=== PATIENT | female | born 1995 | race Caucasian/White ===

== ENCOUNTER 2016-12-19 10:47 | Emergency (ER) | payer OTHER ==
--- NOTE | 2016-12-19 11:22 | ED ---
General Adult HPI - General Chief complaint: Upper Respiratory Infection Stated complaint: congestion Time Seen by Provider: 12/19/16 11:04 Source: patient, RN notes reviewed, old records reviewed Mode of arrival: ambulatory Limitations: no limitations - History of Present Illness Initial comments: This is a 21-year-old female here for evaluation. The patient has history of asthma, history of smoking, patient coming with shortness of breath cough congestion runny nose. Symptoms for 3 days, patient states exposure to her roommate who is also sick with similar symptoms. Patient has no noted fevers, no chest pain. Worsening symptoms with ex exercise and at night. - Related Data Home Medications Medication Instructions Recorded Confirmed Levonorgestrel-Ethin Estradiol 1 tab PO DAILY 12/19/16 12/19/16 [Falmina-28 Tablet] Allergies Allergy/AdvReac Type Severity Reaction Status Date / Time No Known Allergies Allergy Verified 12/19/16 11:15 Review of Systems ROS Statement: Those systems with pertinent positive or pertinent negative responses have been documented in the HPI. ROS Other: All systems not noted in ROS Statement are negative. Past Medical History Past Medical History: Asthma History of Any Multi-Drug Resistant Organisms: None Reported Past Surgical History: No Surgical Hx Reported Past Psychological History: ADD/ADHD, Anxiety Smoking Status: Current every day smoker Past Alcohol Use History: None Reported Past Drug Use History: Marijuana General Exam Limitations: no limitations General appearance: alert, in no apparent distress Head exam: Present: atraumatic, normocephalic, normal inspection Eye exam: Present: normal appearance, PERRL, EOMI. Absent: scleral icterus, conjunctival injection, periorbital swelling ENT exam: Present: normal exam, mucous membranes moist Neck exam: Present: normal inspection. Absent: tenderness, meningismus, lymphadenopathy Respiratory exam: Present: normal lung sounds bilaterally, wheezes, decreased breath sounds, prolonged expiratory. Absent: respiratory distress, rales, rhonchi, stridor Cardiovascular Exam: Present: regular rate, normal rhythm, normal heart sounds. Absent: systolic murmur, diastolic murmur, rubs, gallop, clicks GI/Abdominal exam: Present: soft, normal bowel sounds. Absent: distended, tenderness, guarding, rebound, rigid Extremities exam: Present: normal inspection, full ROM, normal capillary refill. Absent: tenderness, pedal edema, joint swelling, calf tenderness Back exam: Present: normal inspection Neurological exam: Present: alert, oriented X3, CN II-XII intact Psychiatric exam: Present: normal affect, normal mood Skin exam: Present: warm, dry, intact, normal color. Absent: rash Course Vital Signs 12/19/16 12/19/16 10:55 11:30 Temperature 97.5 F L Pulse Rate 96 Respiratory 18 18 Rate Blood Pressure 132/88 O2 Sat by Pulse 98 Oximetry - Reevaluation(s) Reevaluation #1: 12/19/16 11:37 Patient much improved after breathing treatment, no respiratory distress Medical Decision Making - Medical Decision Making 21. ER for evaluation of cough congestion runny nose shortness of breath. Patient has asthma with continued smoking, currently wheezing with asthmatic bronchitis, patient which she with appropriate medication, DISCHARGED home, x- ray negative - Radiology Data Radiology results: report reviewed (Chest x-ray is negative for pneumonia), image reviewed Disposition Clinical Impression: Asthmatic bronchitis, Upper respiratory infection Disposition: HOME SELF-CARE Condition: Good Instructions: Asthma (ED), Upper Respiratory Infection (ED) Referrals: Ronald Booth MD [Primary Care Provider] - 1-2 days
[2016-12-19] MEDS ORDERED: IPRATROPIUM-ALBUTEROL 3 ML NEB INHALATION STA (11:23)
[2016-12-19] MEDS ORDERED: predniSONE 20 MG TAB PO STA (11:23)
[2016-12-19] MEDS ORDERED: AZITHROMYCIN 500 MG TAB PO STA (11:23)
--- NOTE | 2016-12-19 12:24 | XR ---
EXAMINATION TYPE: XR chest 2V DATE OF EXAM: 12/19/2016 12:20 PM COMPARISON: 02/22/2012 HISTORY: Chest pain TECHNIQUE: Frontal and lateral views of the chest are obtained. FINDINGS: There is no focal air space opacity. No evidence for pnuemothorax.No pleural effusion. The cardiac silhouette size is within normal limits. The osseous structures are grossly intact. IMPRESSION: 1. No acute cardiopulmonary process.
[2016-12-19 12:37] VITALS: BP 132/77; PULSE 71; RESP 16; TEMP 98.2
== END 2016-12-19 12:37 | disposition home or self-care (01) ==
LOC: EC 10:47
DX: J45.909 Unspecified asthma, uncomplicated (principal); J06.9 Acute upper respiratory infection, unspecified; F17.200 Nicotine dependence, unspecified, uncomplicated; Z79.3 Long term (current) use of hormonal contraceptives
CPT/HCPCS: 94640; 71020; 99284; J7512

== ENCOUNTER 2017-06-01 18:49 | Emergency (ER) | payer OTHER ==
[2017-06-01 19:20] VITALS: BP 127/78; PULSE 78; RESP 16; TEMP 99.3
--- NOTE | 2017-06-01 19:40 | ED ---
Back Pain HPI - General Chief Complaint: Back Pain/Injury Stated Complaint: tailbone pain Time Seen by Provider: 06/01/17 19:21 Source: patient, RN notes reviewed Mode of arrival: ambulatory Limitations: no limitations - History of Present Illness Initial Comments: This is a 21-year-old female who presents to the emergency department with chief complaint of tail bone pain. Patient states that she has been experiencing this pain for about one month. She denies any specific injury or trauma. Patient describes the pain as a pressure and ache. She reports the pain is made worse with sitting and movement. Mother is at bedside and states that patient walks with a "waddle." Patient denies saddle paresthesias and loss of bladder or bowel function. At its worst, patient rates the pain as 10/ 10. Currently the pain is rated as 5/10. Denies fever, chills, chest pain, shortness of breath, abdominal pain, nausea or vomiting, constipation or diarrhea, dysuria or hematuria, numbness or tingling, headache or vision changes. - Related Data Home Medications Medication Instructions Recorded Confirmed No Known Home Medications [No 06/01/17 06/01/17 Known Home Medications] Allergies Allergy/AdvReac Type Severity Reaction Status Date / Time No Known Allergies Allergy Verified 06/01/17 19:20 Review of Systems ROS Statement: Those systems with pertinent positive or pertinent negative responses have been documented in the HPI. ROS Other: All systems not noted in ROS Statement are negative. Past Medical History Past Medical History: Asthma History of Any Multi-Drug Resistant Organisms: None Reported Past Surgical History: No Surgical Hx Reported Past Psychological History: ADD/ADHD, Anxiety Smoking Status: Current some day smoker Past Alcohol Use History: None Reported Past Drug Use History: Marijuana General Exam - General Exam Comments Initial Comments: General: Awake and alert, well-developed; in no apparent distress. HEENT: Head atraumatic, normocephalic. Pupils are equal, round and reactive to light. Extraocular movements intact. Neck: Supple. Normal ROM. Cardiovascular: Regular rate and rhythm. No murmurs, rubs or gallops. Chest symmetrical. Respiratory: Lungs clear to auscultation bilaterally. No wheezes, rales or rhonchi. Normal respiratory effort with no use of accessory muscles. Back: Skin overlying the coccyx and sacrum appears normal. There is no erythema , swelling or redness. No fluctuance noted on palpation. Tenderness is elicited on palpation of tailbone. Skin: [place], warm and dry without rashes or lesions. Neurological: Alert and oriented x3. CN II-XII grossly intact. Speech is fluent and answers are appropriate. No focal neuro deficits. Psychiatric: Normal mood and affect. No overt signs of depression or anxiety noted. Limitations: no limitations Course Vital Signs 06/01/17 19:18 Temperature 99.3 F Pulse Rate 78 Respiratory 16 Rate Blood Pressure 127/78 O2 Sat by Pulse 98 Oximetry Medical Decision Making - Medical Decision Making This case was discussed with attending physician, Dr. Estrada. X-ray of the sacrum and coccyx revealed no abnormalities. Patient will be discharged home with recommendation to follow-up with primary care provider if further imaging is desired. Patient is in agreement to the plan and voiced understanding. All questions were answered. Disposition Clinical Impression: Coccyx pain Disposition: HOME SELF-CARE Condition: Good Instructions: Back Pain (ED) Additional Instructions: Please follow up with primary care provider within 1-2 days. Return to emergency department if symptoms should worsen or any concerns arise. Referrals: Ronald Booth MD [Primary Care Provider] - 1-2 days Time of Disposition: 20:05
--- NOTE | 2017-06-01 19:53 | XR ---
EXAMINATION TYPE: XR sacrum coccyx DATE OF EXAM: 06/01/2017 COMPARISON: NONE HISTORY: Pain TECHNIQUE: 3 views FINDINGS: Segments have normal alignment. Sacroiliac joints appear normal. I see no fracture. IMPRESSION: Normal sacrum and coccyx exam.
== END 2017-06-01 20:10 | disposition home or self-care (01) ==
LOC: EC 18:49
DX: M53.3 Sacrococcygeal disorders, not elsewhere classified (principal); F17.200 Nicotine dependence, unspecified, uncomplicated
CPT/HCPCS: 72220; 99283

== ENCOUNTER 2017-09-08 20:56 | Emergency (ER) | payer OTHER ==
[2017-09-08 21:07] VITALS: RESP 20; TEMP 97.7
[2017-09-08] MEDS ORDERED: IPRATROPIUM-ALBUTEROL 3 ML NEB INHALATION STA (21:18)
[2017-09-08] MEDS ORDERED: predniSONE 50 MG TAB PO STA (21:18)
--- NOTE | 2017-09-08 21:24 | ED ---
General Adult HPI - General Chief complaint: Upper Respiratory Infection Stated complaint: Asthma Time Seen by Provider: 09/08/17 21:00 Source: patient, RN notes reviewed Mode of arrival: ambulatory Limitations: no limitations - History of Present Illness Initial comments: This is a 21-year-old female presents emergency department with past medical history significant for asthma. Patient states she started having exacerbation of asthma over the last couple of days and she has been coughing quite a bit as well. Patient denies any significant sputum production. Patient states she has had no fevers or chills per patient denies any chest pain or palpitations per patient denies abdominal pain patient denies nausea vomiting diarrhea. Patient states she has an inhaler but she lost her nebulizer so she is not able take any concentrated treatments. - Related Data Home Medications Medication Instructions Recorded Confirmed Amoxicillin 500 mg PO Q12HR 09/08/17 09/08/17 Butalb/APAP/Caff 50-325-40Mg 1 tab PO BID 09/08/17 09/08/17 [Fioricet 50-325-40] Sertraline HCl [Zoloft] 25 mg PO DAILY 09/08/17 09/08/17 Previous Rx's Medication Instructions Recorded Albuterol Inhaler [Ventolin Hfa 1 - 2 puff INHALATION Q6HR PRN #2 09/08/17 Inhaler] puff predniSONE 40 mg PO DAILY #8 tab 09/08/17 Allergies Allergy/AdvReac Type Severity Reaction Status Date / Time cephalexin [From Keflex] Allergy Unknown Verified 09/08/17 21:42 Review of Systems ROS Statement: Those systems with pertinent positive or pertinent negative responses have been documented in the HPI. ROS Other: All systems not noted in ROS Statement are negative. Past Medical History Past Medical History: Asthma History of Any Multi-Drug Resistant Organisms: None Reported Past Surgical History: No Surgical Hx Reported Past Psychological History: ADD/ADHD, Anxiety Smoking Status: Current every day smoker Past Alcohol Use History: None Reported Past Drug Use History: Marijuana General Exam - General Exam Comments Initial Comments: GENERAL: Patient is well-developed and well-nourished. Patient is nontoxic and well- hydrated and is in mild distress. ENT: Neck is soft and supple. No significant lymphadenopathy is noted. Oropharynx is clear. Moist mucous membranes. Neck has full range of motion without eliciting any pain. EYES: The sclera were anicteric and conjunctiva were pink and moist. Extraocular movements were intact and pupils were equal round and reactive to light. Eyelids were unremarkable. PULMONARY: Decreased breath sounds with expiratory wheezing CARDIOVASCULAR: There is a regular rate and rhythm without any murmurs gallops or rubs. ABDOMEN: Soft and nontender with normal bowel sounds. No palpable organomegaly was noted. There is no palpable pulsatile mass. SKIN: Skin is clear with no lesions or rashes and otherwise unremarkable. NEUROLOGIC: Patient is alert and oriented x3. Cranial nerves II through XII are grossly intact. Motor and sensory are also intact. Normal speech, volume and content. Symmetrical smile. MUSCULOSKELETAL: Normal extremities with adequate strength and full range of motion. LYMPHATICS: No significant lymphadenopathy is noted PSYCHIATRIC: Normal psychiatric evaluation. Limitations: no limitations Course Vital Signs 09/08/17 09/08/17 09/08/17 21:02 21:43 21:57 Temperature 97.7 F Pulse Rate 111 H 110 H 114 H Respiratory 20 Rate Blood Pressure 157/81 O2 Sat by Pulse 99 Oximetry Medical Decision Making - Medical Decision Making Chest x-ray shows no acute abnormality. Disposition Clinical Impression: Exacerbation of asthma Disposition: HOME SELF-CARE Instructions: Asthma (ED) Prescriptions: Albuterol Inhaler [Ventolin Hfa Inhaler] 1 - 2 puff INHALATION Q6HR PRN #2 puff PRN Reason: Difficulty breathing predniSONE 40 mg PO DAILY #8 tab Referrals: Ronald Booth MD [Primary Care Provider] - 1-2 days Time of Disposition: 22:23
--- NOTE | 2017-09-08 21:45 | XR ---
EXAMINATION TYPE: XR chest 2V DATE OF EXAM: 09/08/2017 COMPARISON: 12/19/2016 HISTORY: Cough TECHNIQUE: Frontal and lateral views of the chest are obtained. FINDINGS: Heart and mediastinum are normal. Lungs are clear. Diaphragm is normal. Bony thorax is int act. IMPRESSION: Normal chest. No change.
[2017-09-08 22:31] VITALS: BP 123/78; PULSE 105
== END 2017-09-08 22:33 | disposition home or self-care (01) ==
LOC: EC 20:56
DX: J45.901 Unspecified asthma with (acute) exacerbation (principal); F41.9 Anxiety disorder, unspecified; F17.200 Nicotine dependence, unspecified, uncomplicated; Z79.891 Long term (current) use of opiate analgesic; Z79.899 Other long term (current) drug therapy; Z88.1 Allergy status to other antibiotic agents
CPT/HCPCS: 94640; 71046; 99283; J7512

== ENCOUNTER 2018-04-08 16:04 | Emergency (ER) | payer OTHER ==
[2018-04-08] MEDS ORDERED: diphenhydrAMINE 50 MG/ML 1 ML VIAL IVP STA (17:51)
[2018-04-08] MEDS ORDERED: SODIUM CHLORIDE 0.9% 1,000 ML IV STA (17:51)
[2018-04-08] MEDS ORDERED: METOCLOPRAMIDE 5 MG/ML 2 ML VIAL IVP STA (17:51)
--- NOTE | 2018-04-08 17:54 | ED ---
Nausea/Vomiting/Diarrhea HPI - General Chief complaint: Nausea/Vomiting/Diarrhea Stated complaint: , nausea and vomiting Time Seen by Provider: 04/08/18 17:29 Source: patient, RN notes reviewed Mode of arrival: ambulatory Limitations: no limitations - History of Present Illness Initial comments: This is a 22-year-old female who presents to the emergency department with chief complaint of nausea, vomiting and abdominal pain. Patient states that she believes she is 5 weeks . She is unable to see an [facility] [employer] until she is 7 weeks . Patient states that since before she found out she was she has been having nausea and vomiting. She states that over the past few days she has been unable to keep any food down. She also reports epigastric pain but states that this occurs while she is vomiting. Denies any lower abdominal pain. Denies vaginal bleeding or discharge. Denies fevers or chills, chest pain or shortness of breath, dysuria or hematuria. - Related Data Home Medications Medication Instructions Recorded Confirmed Amoxicillin 500 mg PO Q12HR 09/08/17 09/08/17 Butalb/APAP/Caff 50-325-40Mg 1 tab PO BID 09/08/17 09/08/17 [Fioricet 50-325-40] Sertraline HCl [Zoloft] 25 mg PO DAILY 09/08/17 09/08/17 Previous Rx's Medication Instructions Recorded Albuterol Inhaler [Ventolin Hfa 1 - 2 puff INHALATION Q6HR PRN #2 09/08/17 Inhaler] puff predniSONE 40 mg PO DAILY #8 tab 09/08/17 Allergies Allergy/AdvReac Type Severity Reaction Status Date / Time cephalexin [From Keflex] Allergy Unknown Verified 04/08/18 16:28 Review of Systems ROS Statement: Those systems with pertinent positive or pertinent negative responses have been documented in the HPI. ROS Other: All systems not noted in ROS Statement are negative. Past Medical History Past Medical History: Asthma History of Any Multi-Drug Resistant Organisms: None Reported Past Surgical History: No Surgical Hx Reported Past Psychological History: ADD/ADHD, Anxiety Smoking Status: Former smoker Past Alcohol Use History: None Reported Past Drug Use History: Marijuana General Exam - General Exam Comments Initial Comments: General: Awake and alert, well-developed; in no apparent distress. HEENT: Head atraumatic, normocephalic. Pupils are equal, round and reactive to light. Extraocular movements intact. Oropharynx moist without erythema or exudate. Neck: Supple. Normal ROM. Cardiovascular: Regular rate and rhythm. No murmurs, rubs or gallops. Chest symmetrical. Respiratory: Lungs clear to auscultation bilaterally. No wheezes, rales or rhonchi. Normal respiratory effort with no use of accessory muscles. Abdomen: Soft, non-tender, non-distended. No rigidity, rebound or guarding. Normal bowel sounds in all 4 quadrants. Musculoskeletal: Normal ROM, no tenderness bilateral upper and lower extremities. Ambulating normally. Skin: [place], warm and dry without rashes or lesions. Neurological: Alert and oriented x3. CN II-XII grossly intact. Speech is fluent and answers are appropriate. No focal neuro deficits. Psychiatric: Normal mood and affect. No overt signs of depression or anxiety noted. Limitations: no limitations Course Vital Signs 04/08/18 04/08/18 16:27 17:42 Temperature 98.2 F Pulse Rate 76 75 Respiratory 18 18 Rate Blood Pressure 115/73 113/73 O2 Sat by Pulse 99 99 Oximetry Medical Decision Making - Medical Decision Making This is a 22-year-old female who presents to the emergency department with chief complaint of nausea and vomiting. Patient also reports epigastric abdominal pain. She states that she is currently 5 weeks . Patient given IV fluids, Reglan in the emergency department. CBC and CMP are unremarkable. UA does appear to be contaminated however it is sent for culture and is pending. Social ultrasound revealed a single IUP at 6 weeks 3 days without complicating processes. Patient's vital signs are stable and she is in no acute distress. She reports significant improvement in symptoms. She will be discharged home at this time. Recommended following up with [facility] [employer]. Patient states that she does see Dr. Sargent. She is in agreement and voices understanding. All questions answered. - Lab Data Result diagrams: 04/08/18 17:28 04/08/18 17:28 Lab Results 04/08/18 04/08/18 04/08/18 Range/Units 17:28 17:28 17:28 WBC 8.8 (3.8-10.6) k/uL RBC 4.75 (3.80-5.40) m/uL Hgb 14.3 (11.4-16.0) gm/dL Hct 39.9 (34.0-46.0) % MCV 84.0 (80.0-100.0) fL MCH 30.1 (25.0-35.0) pg MCHC 35.8 (31.0-37.0) g/dL RDW 13.0 (11.5-15.5) % Plt Count 238 (150-450) k/uL Neutrophils % 72 % Lymphocytes % 19 % Monocytes % 6 % Eosinophils % 1 % Basophils % 0 % Neutrophils # 6.4 (1.3-7.7) k/uL Lymphocytes # 1.7 (1.0-4.8) k/uL Monocytes # 0.5 (0-1.0) k/uL Eosinophils # 0.0 (0-0.7) k/uL Basophils # 0.0 (0-0.2) k/uL Sodium 136 L (137-145) mmol/L Potassium 4.2 (3.5-5.1) mmol/L Chloride 105 (98-107) mmol/L Carbon Dioxide 22 (22-30) mmol/L Anion Gap 9 mmol/L BUN 10 (7-17) mg/dL Creatinine 0.50 L (0.52-1.04) mg/dL Est GFR (CKD-EPI)AfAm >90 (>60 ml/min/1.73 sqM) Est GFR (CKD-EPI)NonAf >90 (>60 ml/min/1.73 sqM) Glucose 85 (74-99) mg/dL Calcium 9.6 (8.4-10.2) mg/dL Total Bilirubin 0.4 (0.2-1.3) mg/dL AST 19 (14-36) U/L ALT 21 (9-52) U/L Alkaline Phosphatase 49 (38-126) U/L Total Protein 7.0 (6.3-8.2) g/dL Albumin 4.2 (3.5-5.0) g/dL HCG, Quant 115994.0 mIU/mL Urine Color Yellow Urine Appearance Cloudy H (Clear) Urine pH 8.0 (5.0-8.0) Ur Specific [place] 1.020 (1.001-1.035) Urine Protein Trace H (Negative) Urine Glucose (UA) Negative (Negative) Urine Ketones Negative (Negative) Urine Blood Negative (Negative) Urine Nitrite Negative (Negative) Urine Bilirubin Negative (Negative) Urine Urobilinogen <2.0 (<2.0) mg/dL Ur Leukocyte Esterase Moderate H (Negative) Urine WBC 24 H (0-5) /hpf Ur Squamous Epith Cells 16 H (0-4) /hpf Amorphous Sediment Many H (None) /hpf Urine Mucus Moderate H (None) /hpf - Radiology Data Radiology results: report reviewed Obstetrical ultrasound impression: The ultrasound gestational age is 6 weeks 3 days. No complicating process seen. Heart rate 136 bpm Disposition Clinical Impression: Nausea and vomiting during Disposition: HOME SELF-CARE Condition: Good Instructions: Nausea and Vomiting in (ED) Additional Instructions: Please follow-up with Dr. Sargent. Please follow up with primary care provider within 1-2 days. Return to emergency department if symptoms should worsen or any concerns arise. Is patient prescribed a controlled substance at d/c from ED?: No Referrals: Ronald Booth MD [Primary Care Provider] - 1-2 days Time of Disposition: 19:55
[2018-04-08 18:02] LABS: Basophils % (A) 0 %; Eosinophils % (A) 1 %; HCT 39.9 % (34.0-46.0); HGB 14.3 gm/dL (11.4-16.0); Lymphocytes # (A) 1.7 k/uL (1.0-4.8); Lymphocytes % (A) 19 %; MCH 30.1 pg (25.0-35.0); MCHC 35.8 g/dL (31.0-37.0); Mean Platelet Volume 7.6; Monocytes # (A) 0.5 k/uL (0-1.0); Monocytes % (A) 6 %; Neutrophils # (A) 6.4 k/uL (1.3-7.7); Neutrophils % (A) 72 %; Platelet Count 238 k/uL (150-450); RBC 4.75 m/uL (3.80-5.40); WBC 8.8 k/uL (3.8-10.6)
[2018-04-08 18:09] LABS: Amorphous Sediment,Urine Many /hpf; Appearance,Urine Cloudy (Clear); Bilirubin,Urine Negative (Negative); Blood,Urine Negative (Negative); Color,Urine Yellow; Glucose,Urine (UA) Negative (Negative); Ketones,Urine Negative (Negative); Leukocyte Esterase,Urine Moderate (Negative); Mucus,Urine Moderate /hpf; Nitrite,Urine Negative (Negative); Protein,Urine Trace (Negative); Squamous Epithelial Cell,Urine 16 /hpf (0-4); Urobilinogen,Urine <2.0 mg/dL (<2.0); WBC,Urine 24 /hpf (0-5)
[2018-04-08 18:21] LABS: ALT 21 U/L (9-52); AST 19 U/L (14-36); Albumin 4.2 g/dL (3.5-5.0); Alkaline Phosphatase 49 U/L (38-126); Anion Gap 9 mmol/L; Blood Urea Nitrogen 10 mg/dL (7-17); Calcium 9.6 mg/dL (8.4-10.2); Carbon Dioxide 22 mmol/L (22-30); Chloride 105 mmol/L (98-107); Glucose 85 mg/dL (74-99); Potassium 4.2 mmol/L (3.5-5.1); Sodium 136 mmol/L (137-145); Total Bilirubin 0.4 mg/dL (0.2-1.3)
--- NOTE | 2018-04-08 19:39 | US ---
EXAMINATION TYPE: Transabdominal DATE OF EXAM: 11/21/17 COMPARISON: NONE CLINICAL HISTORY: n/v, abdominal pain. EXAM PERFORMED: Transabdominal (TA) EXAM MEASUREMENTS: GESTATIONAL AGE / DATING Physician Established: Not yet established Dates by LMP: (5 weeks/1 days) EDC: 12/08/18 Dates by First Scan: No previous this is first scan Dates by Current Scan for: (6 weeks/3 days) EDC: 11/29/18 MATERNAL ANATOMY Uterus: Anteverted; 12.4 x 5.8 x 6.1 cm Right Ovary: Cystic area measuring 2.0 x 1.4 x 1.7 cm?corpus luteum; 3.5 x 2.6 x 2.6 cm Left Ovary: Appears wnl; 3.6 x 1.4 x 2.3 cm Post CDS / Adnexa: Appears wnl Presence of free fluid: No Presence of corpus luteal cyst: ?Rt ovary measuring 2.0 x 1.4 x 1.7 cm Presence of subchorionic bleed: No GESTATION / SURVEY CRL: 0.6 cm (6 weeks/3 days) Yolk Sac (normal less than 6mm): 3 mm Heart Rate: 136 bpm Rhythm: normal IUP: Single viable Date of LMP: 02/24/18 Beta HcG (if available): 103,[phone] IMPRESSION: The ultrasound gestational ages 6 weeks 3 days. No complicating process seen.
[2018-04-08 20:05] VITALS: BP 112/70; PULSE 71; RESP 16; TEMP 98.3
== END 2018-04-08 20:05 | disposition home or self-care (01) ==
LOC: EC 16:04
DX: O21.9 Vomiting of pregnancy, unspecified (principal); O99.89 Other specified diseases and conditions complicating pregnancy, childbirth and the puerperium; R10.13 Epigastric pain; O99.341 Other mental disorders complicating pregnancy, first trimester; F90.9 Attention-deficit hyperactivity disorder, unspecified type; F41.9 Anxiety disorder, unspecified; Z87.891 Personal history of nicotine dependence; Z79.899 Other long term (current) drug therapy; Z88.1 Allergy status to other antibiotic agents; Z3A.01 Less than 8 weeks gestation of pregnancy
CPT/HCPCS: 36415; 80053; 85025; 81001; 84702; 87086; 76801; 99284; 96374; 96375; 96361; J1200; J2765

== ENCOUNTER → 2018-05-09 | Outpatient (CLI) | payer OTHER ==
--- NOTE | 2018-05-09 11:46 | US ---
EXAMINATION TYPE: Transabdominal DATE OF EXAM: 11/21/17 COMPARISON: US 2017 CLINICAL HISTORY: Z36 confirms dates. Confirm dates, 2, para 1 EXAM PERFORMED: Transabdominal (TA) EXAM MEASUREMENTS: GESTATIONAL AGE / DATING Physician Established: (11 weeks/1 days) EDC: 11/27/2018 Dates by LMP: (9 weeks/4 days) EDC: 12/08/2018 Dates by First Scan: (10 weeks/6 days) EDC: 11/29/2018 Dates by Current Scan for: (11 weeks/4 days) EDC: 11/24/2018 MATERNAL ANATOMY Uterus: 13.0 x 7.4 x 7.9cm, anteverted Right Ovary: 3.1 x 2.7 x 2.4cm Left Ovary: 2.4 x 2.0 x 0.9cm Post CDS / Adnexa: wnl Presence of free fluid: no Presence of corpus luteal cyst: right ovary: 1.9 x 1.5 x 1.8cm cystic area, possible corpus luteum Presence of subchorionic bleed: no GESTATION / SURVEY CRL: 4.7cm (11 weeks/4 days) Yolk Sac (normal less than 6mm): not seen at this time Heart Rate: 155 bpm Rhythm: Normal IUP: Viable IUP Nuchal Translucency 10-14wks (normal less than 3mm): 1.5mm Date of LMP: 02/24/2018 Beta HcG (if available): Not available at time of exam. Single IUP measuring 11 weeks 4 days with a heart rate of 155bpm and an estimated delivery date of based on crown-rump length. IMPRESSION: Single intrauterine gestation estimated at 11 weeks 4 days gestation. Estimated date of confinement i s 11/24/2018. Cardiac activity measures 155 bpm.
== END ==
LOC: RADUSWWP 10:59
PROVIDERS: ATTEND Obstetrics & Gynecology
DX: Z36.9 Encounter for antenatal screening, unspecified (principal); Z3A.11 11 weeks gestation of pregnancy
CPT/HCPCS: 76801; 76813

== ENCOUNTER 2018-06-15 23:34 | Emergency (ER) | payer OTHER ==
[2018-06-15 23:38] VITALS: BP 112/74; PULSE 84; RESP 18; TEMP 98.5
[2018-06-16] MEDS ORDERED: ACETAMINOPHEN TAB 500 MG TAB PO STA (00:40)
[2018-06-16] MEDS ORDERED: LIDOCAINE 5% PATCH TOPICAL STA (00:50)
--- NOTE | 2018-06-16 00:52 | ED ---
Neck Injury/Pain HPI - General Chief Complaint: Neck Pain/Injury Stated Complaint: Neck Pain Time Seen by Provider: 06/16/18 00:11 Mode of arrival: ambulatory Limitations: no limitations - History of Present Illness Initial Comments: 22-year-old female patient presents to the emergency department today for complaints of right-sided neck pain and muscle tightness. Patient states that she woke this morning with symptoms. Patient states that she has been applying heat to the neck throughout the day as well as taking Tylenol without much relief of her symptoms. Patient states that the pain radiates up into her neck and down into her right shoulder. She denies any radiation of the pain down her arms. Denies any numbness or tingling to the upper extremities. Patient denies any neck injury. States the pain is causing her to have a headache. She denies any blurred vision, double vision, sensitivity to light or sound. Denies any fever, chills, or upper respiratory symptoms. States that she did have similar neck pain earlier in the month. Patient is 16 weeks . She denies any abdominal pain, vaginal bleeding, or vaginal discharge. Patient denies any back pain, chest pain, shortness of breath, dizziness, weakness, abdominal pain, nausea, vomiting, or difficulties with bowel movements or urination. - Related Data Home Medications Medication Instructions Recorded Confirmed Amoxicillin 500 mg PO Q12HR 09/08/17 09/08/17 Butalb/APAP/Caff 50-325-40Mg 1 tab PO BID 09/08/17 09/08/17 [Fioricet 50-325-40] Sertraline HCl [Zoloft] 25 mg PO DAILY 09/08/17 09/08/17 Previous Rx's Medication Instructions Recorded Albuterol Inhaler [Ventolin Hfa 1 - 2 puff INHALATION Q6HR PRN #2 09/08/17 Inhaler] puff predniSONE 40 mg PO DAILY #8 tab 09/08/17 Lidocaine 5% Patch [Lidoderm] 1 patch TOPICAL DAILY #5 patch 06/16/18 Allergies Allergy/AdvReac Type Severity Reaction Status Date / Time cephalexin [From Keflex] Allergy Unknown Verified 06/15/18 23:38 Review of Systems ROS Statement: Those systems with pertinent positive or pertinent negative responses have been documented in the HPI. ROS Other: All systems not noted in ROS Statement are negative. Past Medical History Past Medical History: Asthma History of Any Multi-Drug Resistant Organisms: None Reported Past Surgical History: No Surgical Hx Reported Past Psychological History: ADD/ADHD, Anxiety Smoking Status: Former smoker Past Alcohol Use History: None Reported Past Drug Use History: Marijuana General Exam Limitations: no limitations General appearance: alert, in no apparent distress, other (This is a well- developed, well-nourished adult female patient in no acute distress. Vital signs upon presentation are temperature 98.5F, pulse 84, respirations 18, blood pressure 112/74, pulse ox 98% on room air.) Eye exam: Present: normal appearance, PERRL, EOMI. Absent: scleral icterus, conjunctival injection, periorbital swelling ENT exam: Present: normal exam, normal oropharynx, mucous membranes moist Neck exam: Present: normal inspection, tenderness (Right lateral neck tenderness ), full ROM. Absent: meningismus, lymphadenopathy Respiratory exam: Present: normal lung sounds bilaterally. Absent: respiratory distress, wheezes, rales, rhonchi, stridor Cardiovascular Exam: Present: regular rate, normal rhythm, normal heart sounds. Absent: systolic murmur, diastolic murmur, rubs, gallop, clicks Extremities exam: Present: normal inspection, full ROM, normal capillary refill , other (Skin to the upper Chevys are pink, warm, and dry. Cap refills less than 3 seconds. Radial pulses 2+ and equal bilaterally.). Absent: tenderness, pedal edema, joint swelling, calf tenderness Neurological exam: Present: alert, oriented X3, CN II-XII intact, other ( Strength upper extremities is 5/5.) Psychiatric exam: Present: normal affect, normal mood Skin exam: Present: warm, dry, intact, normal color. Absent: rash Course Vital Signs 06/15/18 23:36 Temperature 98.5 F Pulse Rate 84 Respiratory 18 Rate Blood Pressure 112/74 O2 Sat by Pulse 98 Oximetry Medical Decision Making - Medical Decision Making 22-year-old female patient presented to the emergency department today for complaints of pain to the right side of the neck and right shoulder. Physical examination did reveal some muscle tightness in the right upper trapezius muscle. Patient is neurologically intact with good strength to the upper extremities. She denied any radiating pain, numbness, or tingling. Patient symptoms are consistent with a muscle spasm, spasmodic torticollis. She is so this does complicate treatment however we will give Tylenol. She is instructed to alternate ice and heat to the area. We will apply Lidoderm patch. She is instructed to perform gentle range of motion and stretching exercises. She is instructed to follow-up with her primary care physician for recheck in 1-2 days. Return parameters discussed in detail that she verbalizes understanding and agrees with this plan. Disposition Clinical Impression: Spasmodic torticollis Disposition: HOME SELF-CARE Condition: Good Instructions: Spasmodic Torticollis (ED) Additional Instructions: Alternate application of ice and heat. Perform gentle range of motion and stretching exercises. Continue taking Tylenol every 6 hours as needed for pain. Use patches as directed. Follow-up with your primary care physician for recheck in 1-2 days. Return here immediately for any new, worsening, or concerning symptoms. Prescriptions: Lidocaine 5% Patch [Lidoderm] 1 patch TOPICAL DAILY #5 patch Is patient prescribed a controlled substance at d/c from ED?: No Referrals: Ronald Booth MD [Primary Care Provider] - 1-2 days Time of Disposition: 00:52
== END 2018-06-16 01:02 | disposition home or self-care (01) ==
LOC: EC 23:34
DX: O99.352 Diseases of the nervous system complicating pregnancy, second trimester (principal); G24.3 Spasmodic torticollis; O99.342 Other mental disorders complicating pregnancy, second trimester; F41.9 Anxiety disorder, unspecified; F90.9 Attention-deficit hyperactivity disorder, unspecified type; Z87.891 Personal history of nicotine dependence; Z79.899 Other long term (current) drug therapy; Z88.1 Allergy status to other antibiotic agents; Z3A.16 16 weeks gestation of pregnancy
CPT/HCPCS: 99283

== ENCOUNTER 2018-09-14 00:13 | Outpatient (CLI) | payer OTHER ==
[2018-09-14 00:33] VITALS: BP 128/80; PULSE 98; RESP 18; TEMP 96.8
--- NOTE | 2018-11-19 10:02 | P.MSEPDOC ---
Presenting Problems - Arrival Data Date of Arrival on Unit: 09/14/18 Time of Arrival on Unit: 00:13 Mode of Transport: Wheelchair Vital Signs - Temperature Temperature: 96.8 F - Pulse Right Supine Brachial Pulse Rate: 98 Pulse Assessment Method: Automatic Cuff - Respirations Respiratory Rate: 18 Oxygen Delivery Method: Room Air O2 Sat by Pulse Oximetry: 97 - Blood Pressure Right Arm Supine Blood Pressure: 128/80 Blood Pressure Mean: 96 Blood Pressure Source: Automatic Cuff Medical Screen Scoring (Post) - Cervical Exam Dilation: 0 cm = 0 Effacement: Exam Deferred - Uterine Contractions Frequency: < 36 weeks = 6 Duration: N/A Intensity: N/A - Maternal Vital Signs Maternal Temperature: N/A - Assessment Heart Rate: 135 Heart Rate - NICHD Category: Category I (Normal) = 0 NST: Reactive Position: N/A - Total Score Total Score (Post): 6 - Post Treatment Level of Risk Post Treatment Level of Risk: Medium (6-9) Physician Notification (Post) - Physician Notified Physician Notified Date: 09/14/18 Physician Notified Time: 00:50 Spoke With: Arie Messina Order Received: Yes - Notification Comment Comment: D/c home, follow up as scheduled / Disposition - Disposition OB Disposition: Discharge to home, Written follow up instructions reviewed Discharge Date: 09/14/18 Discharge Time: 00:55 I agree with the RN Medical Screening Exam: Yes Physician's MSE Comment: PT complained of pain by her right hip and groin. disc round ligament pain vs labor pains. Risk & Benefit of care provided described in d/c instruction: Yes Diagnosis: FALSE LABOR BEFORE 37 COMPLETED WEEKS OF GEST, SECOND TRI
== END 2018-09-14 00:55 | disposition home or self-care (01) ==
LOC: FBPOP 00:13
PROVIDERS: ATTEND Obstetrics & Gynecology
DX: O47.02 False labor before 37 completed weeks of gestation, second trimester (principal); Z3A.00 Weeks of gestation of pregnancy not specified
CPT/HCPCS: 59025; G0463; 99213

== ENCOUNTER 2018-09-18 01:35 | Emergency (ER) | payer OTHER ==
[2018-09-18 01:41] VITALS: RESP 16; TEMP 98.1
[2018-09-18] MEDS ORDERED: diphenhydrAMINE 50 MG/ML 1 ML VIAL IVP STA (02:24)
[2018-09-18] MEDS ORDERED: SODIUM CHLORIDE 0.9% 1,000 ML IV STA (02:24)
[2018-09-18] MEDS ORDERED: METOCLOPRAMIDE 5 MG/ML 2 ML VIAL IVP STA (02:24)
--- NOTE | 2018-09-18 02:29 | ED ---
Nausea/Vomiting/Diarrhea HPI - General Source: patient Mode of arrival: ambulatory Limitations: no limitations <Keerthi Romeo - Last Filed: 09/18/18 04:50> <Kerri Gu - Last Filed: 09/18/18 08:01> - General Chief complaint: Nausea/Vomiting/Diarrhea Stated complaint: Nausea, Vomiting 28 wks preg Time Seen by Provider: 09/18/18 02:08 - History of Present Illness Initial comments: 22-year-old female patient presents to the emergency department today for evaluation of vomiting. Patient is 29 weeks , , COMMISSION ASSOCIATE is Dr. Sargent. Patient states that she started vomiting approximately 4 days ago. States she's been unable to keep down any food or fluids since. States that she did have diarrhea for the first 2 days but that has resolved. States that her son did have one vomiting episode and has had diarrhea for a couple days as well. She denies any fevers or chills. Denies any recent travel. States she is having some upper abdominal pain and discomfort. She denies any pelvic pain , vaginal bleeding, or vaginal discharge. States that her urine is orange in color. She denies any dysuria, urinary urgency, urinary frequency. Patient denies any recent rash, shortness breath, chest pain, back pain, numbness, tingling, dizziness, weakness, hematuria, dysuria, urinary urgency, urinary frequency, headache, visual changes, or any other complaints. (Keerthi Romeo) - Related Data Home Medications Medication Instructions Recorded Confirmed Pnv No.95/Ferrous Fum/Folic AC 1 each PO DAILY 09/14/18 09/18/18 [ Multivitamin Tablet] Allergies Allergy/AdvReac Type Severity Reaction Status Date / Time cephalexin [From Keflex] AdvReac Mild Itching Verified 09/18/18 05:39 Review of Systems ROS Other: All systems not noted in ROS Statement are negative. <Keerthi Romeo - Last Filed: 09/18/18 04:50> ROS Other: All systems not noted in ROS Statement are negative. <Kerri Gu - Last Filed: 09/18/18 08:01> ROS Statement: Those systems with pertinent positive or pertinent negative responses have been documented in the HPI. Past Medical History Past Medical History: Asthma History of Any Multi-Drug Resistant Organisms: None Reported Past Surgical History: No Surgical Hx Reported Past Psychological History: ADD/ADHD, Anxiety Smoking Status: Former smoker <Keerthi Romeo - Last Filed: 09/18/18 04:50> General Exam Limitations: no limitations General appearance: alert, in no apparent distress, other (This is a well- developed, well-nourished adult female patient in no acute distress. Vital signs upon presentation are temperature 98.1F, pulse 98, respirations 16, blood pressure 107/69, pulse ox 94% on room air.) Eye exam: Present: normal appearance, PERRL, EOMI. Absent: scleral icterus, conjunctival injection, periorbital swelling ENT exam: Present: normal exam, normal oropharynx, mucous membranes moist Respiratory exam: Present: normal lung sounds bilaterally. Absent: respiratory distress, wheezes, rales, rhonchi, stridor Cardiovascular Exam: Present: regular rate, normal rhythm, normal heart sounds. Absent: systolic murmur, diastolic murmur, rubs, gallop, clicks GI/Abdominal exam: Present: soft, tenderness (Midepigastric and right upper quadrant tenderness), normal bowel sounds, other (Gravid abdomen). Absent: distended, guarding, rebound, rigid Neurological exam: Present: alert, oriented X3, CN II-XII intact Psychiatric exam: Present: normal affect, normal mood Skin exam: Present: warm, dry, intact, normal color. Absent: rash <Keerthi Romeo M - Last Filed: 09/18/18 04:50> Vital Signs 09/18/18 09/18/18 01:38 05:16 Temperature 98.1 F Pulse Rate 98 96 Respiratory 16 16 Rate Blood Pressure 107/69 108/67 O2 Sat by Pulse 94 L 97 Oximetry Medical Decision Making - Lab Data Result diagrams: 09/18/18 02:03 09/18/18 02:03 <Keerthi Romeo - Last Filed: 09/18/18 04:50> - Lab Data Result diagrams: 09/18/18 02:03 09/18/18 02:03 <Kerri Gu P - Last Filed: 09/18/18 08:01> - Medical Decision Making 22-year-old female patient presented to the emergency department today for a 4 day history of vomiting with 2 day history of diarrhea. Patient is afebrile. Vital signs stable. Patient does have asthma and is having and exacerbations oxygen saturation is low. She is 29 weeks . Physical examination did reveal some midepigastric and right upper quadrant abdominal tenderness. Labs reviewed and were unremarkable. Urinalysis did show evidence of white blood cells and bacteria so we will treat with Macrobid. This has been sent for culture. Patient did have nonstress test performed in the emergency department by labor and delivery staff, they did discuss the case with the on-call COMMISSION ASSOCIATE Dr. Constantino who would like patient monitored further. She'll be discharged at this time with a diagnosis of gastritis. She'll be given a prescription for Reglan and Macrobid. She is instructed to proceed directly to the labor and delivery unit upon discharge from this department. She is instructed to follow- up with her primary care physician for recheck in 1-2 days. Return parameters discussed in detail. She verbalizes understanding and agrees this plan. (Keerthi Romeo) I was available for consultation in the emergency department. The history and physical exam were done by the midlevel provider. I was consulted for this patient's care. I reviewed the case with the midlevel provider and based on their presentation of the patient, I agree with the assessment, medical decision making and plan of care as documented. (Kerri Gu) - Lab Data Lab Results 09/18/18 09/18/18 09/18/18 Range/Units 02:03 02:03 02:03 WBC 5.9 (3.8-10.6) k/uL RBC 4.51 (3.80-5.40) m/uL Hgb 12.6 (11.4-16.0) gm/dL Hct 38.9 (34.0-46.0) % MCV 86.3 (80.0-100.0) fL MCH 27.9 (25.0-35.0) pg MCHC 32.4 (31.0-37.0) g/dL RDW 12.9 (11.5-15.5) % Plt Count 225 (150-450) k/uL Neutrophils % 69 % Lymphocytes % 16 % Monocytes % 9 % Eosinophils % 1 % Basophils % 1 % Neutrophils # 4.1 (1.3-7.7) k/uL Lymphocytes # 1.0 (1.0-4.8) k/uL Monocytes # 0.6 (0-1.0) k/uL Eosinophils # 0.1 (0-0.7) k/uL Basophils # 0.0 (0-0.2) k/uL Sodium 134 L (137-145) mmol/L Potassium 3.7 (3.5-5.1) mmol/L Chloride 100 (98-107) mmol/L Carbon Dioxide 27 (22-30) mmol/L Anion Gap 7 mmol/L BUN 9 (7-17) mg/dL Creatinine 0.49 L (0.52-1.04) mg/dL Est GFR (CKD-EPI)AfAm >90 (>60 ml/min/1.73 sqM) Est GFR (CKD-EPI)NonAf >90 (>60 ml/min/1.73 sqM) Glucose 80 (74-99) mg/dL Calcium 8.4 (8.4-10.2) mg/dL Total Bilirubin 1.1 (0.2-1.3) mg/dL AST 34 (14-36) U/L ALT 27 (9-52) U/L Alkaline Phosphatase 103 (38-126) U/L Total Protein 6.3 (6.3-8.2) g/dL Albumin 3.3 L (3.5-5.0) g/dL Amylase 93 (30-110) U/L Lipase 171 (23-300) U/L Urine Color Dark Yellow Urine Appearance Cloudy H (Clear) Urine pH 6.5 (5.0-8.0) Ur Specific [place] 1.024 (1.001-1.035) Urine Protein 1+ H (Negative) Urine Glucose (UA) Negative (Negative) Urine Ketones Negative (Negative) Urine Blood Negative (Negative) Urine Nitrite Negative (Negative) Urine Bilirubin 1+ H (Negative) Urine Urobilinogen 8.0 (<2.0) mg/dL Ur Leukocyte Esterase Large H (Negative) Urine RBC 1 (0-5) /hpf Urine WBC 71 H (0-5) /hpf Ur Squamous Epith Cells 30 H (0-4) /hpf Urine Bacteria Occasional H (None) /hpf Urine Mucus Moderate H (None) /hpf Disposition Is patient prescribed a controlled substance at d/c from ED?: No Time of Disposition: 04:29 <Keerthi Romeo - Last Filed: 09/18/18 04:50> <Kerri Gu P - Last Filed: 09/18/18 08:01> Clinical Impression: Gastroenteritis Disposition: HOME SELF-CARE Condition: Good Instructions (If sedation given, give patient instructions): Gastroenteritis ( DC) Additional Instructions: Increase fluids. Go immediately to the labor and delivery unit upon her discharge from here for further monitoring. Return to the emergency department immediately for any new, worsening, or concerning symptoms. Referrals: Ronald Booth MD [Primary Care Provider] - 1-2 days
[2018-09-18 03:04] LABS: Appearance,Urine Cloudy (Clear); Bacteria,Urine Occasional /hpf; Bilirubin,Urine 1+ (Negative); Blood,Urine Negative (Negative); Color,Urine Dark Yellow; Glucose,Urine (UA) Negative (Negative); Ketones,Urine Negative (Negative); Leukocyte Esterase,Urine Large (Negative); Mucus,Urine Moderate /hpf; Nitrite,Urine Negative (Negative); PH, Urine 6.5 (5.0-8.0); Protein,Urine 1+ (Negative); RBC,Urine 1 /hpf (0-5); Specific Gravity,Urine 1.024 (1.001-1.035); Squamous Epithelial Cell,Urine 30 /hpf (0-4); WBC,Urine 71 /hpf (0-5)
[2018-09-18 03:11] LABS: ALT 27 U/L (9-52); AST 34 U/L (14-36); Albumin 3.3 g/dL (3.5-5.0); Alkaline Phosphatase 103 U/L (38-126); Amylase 93 U/L (30-110); Anion Gap 7 mmol/L; Blood Urea Nitrogen 9 mg/dL (7-17); Calcium 8.4 mg/dL (8.4-10.2); Carbon Dioxide 27 mmol/L (22-30); Chloride 100 mmol/L (98-107); Glucose 80 mg/dL (74-99); Lipase 171 U/L (23-300); Potassium 3.7 mmol/L (3.5-5.1); Sodium 134 mmol/L (137-145); Total Bilirubin 1.1 mg/dL (0.2-1.3); Total Protein 6.3 g/dL (6.3-8.2)
[2018-09-18 03:16] LABS: Basophils % (A) 1 %; Eosinophils # (A) 0.1 k/uL (0-0.7); Eosinophils % (A) 1 %; HCT 38.9 % (34.0-46.0); HGB 12.6 gm/dL (11.4-16.0); Lymphocytes % (A) 16 %; MCH 27.9 pg (25.0-35.0); MCHC 32.4 g/dL (31.0-37.0); MCV 86.3 fL (80.0-100.0); Mean Platelet Volume 6.8; Monocytes # (A) 0.6 k/uL (0-1.0); Monocytes % (A) 9 %; Neutrophils # (A) 4.1 k/uL (1.3-7.7); Neutrophils % (A) 69 %; Platelet Count 225 k/uL (150-450); RBC 4.51 m/uL (3.80-5.40); RDW 12.9 % (11.5-15.5); WBC 5.9 k/uL (3.8-10.6)
[2018-09-18] MEDS ORDERED: NITROFURANTOIN MONOHYD/M-CRYST 100 MG CAP PO STA (04:27)
[2018-09-18 05:18] VITALS: BP 108/67; PULSE 96
== END 2018-09-18 05:19 | disposition home or self-care (01) ==
LOC: EC 01:35
DX: O99.513 Diseases of the respiratory system complicating pregnancy, third trimester (principal); K52.9 Noninfective gastroenteritis and colitis, unspecified; K29.70 Gastritis, unspecified, without bleeding; O99.343 Other mental disorders complicating pregnancy, third trimester; J45.901 Unspecified asthma with (acute) exacerbation; O99.89 Other specified diseases and conditions complicating pregnancy, childbirth and the puerperium; R82.71 Bacteriuria; Z88.1 Allergy status to other antibiotic agents; Z87.891 Personal history of nicotine dependence; Z3A.29 29 weeks gestation of pregnancy
CPT/HCPCS: 99284 ×2; 96374 ×2; 96375 ×2; 96361 ×2; 59025; 36415; 80053; 82150; 83690; 85025; 81001; 87086; 76805; G0463; J1200; J2765; 99213

== ENCOUNTER 2018-09-18 05:35 | Outpatient (CLI) | payer OTHER ==
[2018-09-18 07:22] VITALS: BP 111/58; PULSE 93; RESP 16; TEMP 96.7
--- NOTE | 2018-09-18 07:37 | US ---
EXAMINATION TYPE: US OB >= 14 wk fetus DATE OF EXAM: 09/18/2018 COMPARISON: Prior ultrasound May 09, 2018. CLINICAL HISTORY: nausea, vomiting, dehydration TECHNIQUE: OBTA early third trimester. GESTATIONAL AGE / DATING Physician Established: (29 weeks/6 days) EDC: 11/28/2018 Dates by LMP: LMP unknown Dates by First Scan: (29 weeks/5 days) EDC: 11/29/2018 Dates by Current Scan: (31 weeks/2 days) EDC: 11/18/2018 SURVEY IUP: Single PLACENTA: Posterior PREVIA: No Previa VLAD: 14.5 cm Normal CERVICAL LENGTH (transabdominal: norm > 3.0cm): N/A, non distended bladder BIOMETRY PRESENTATION: Vertex LIE: Longitudinal BPD: 8.1 cm 32 weeks / 4 days HC: 29.6 cm 32 weeks / 5 days AC: 27.0 cm 31 weeks / 1 days FL: 5.9 cm 30 weeks / 5 days ESTIMATED WEIGHT IN GRAMS: 1737 grams ESTIMATED WEIGHT IN LBS/OZ: 3 lbs. 13 oz. WEIGHT PERCENTAGE BASED ON ESTABLISHED DATES: 85.3% HC/AC: 1.0 Normal FL/AC: 21.8 Normal HEART RATE: 139 bpm RHYTHM: Normal Single live intrauterine gestation is redemonstrated. Normal cephalad presentation to fetus is seen. There is no ultrasound evidence for placenta previa. Amniotic fluid index is calculated within normal limits. biometry measurements are congruent and felt within normal limits. IMPRESSION: As above, no ultrasound evidence for complication.
--- NOTE | 2018-09-18 12:35 | P.MSEPDOC ---
Presenting Problems - Arrival Data Date of Arrival on Unit: 09/18/18 Time of Arrival on Unit: 05:35 Mode of Transport: Portable - Complaint OB-Reason for Admission/Chief Complaint: Other Comment: NST Medical History - Information : 2 Para: 1 Term: 1 : 0 Abortions: Spontaneous or Elective: 0 Number of Living Children: 1 - Gestational Age Gestational Age by PAWEL (wks/days): 29 Weeks and 6 Days Review of Systems - Review of Systems Constitutional: No problems Breast: No problems ENT: No problems Cardiovascular: No problems Respiratory: No problems Gastrointestinal: No problems Genitourinary: No problems Musculoskeletal: No problems Neurological: No problems Skin: No problems Vital Signs - Temperature Temperature: 96.7 F Temperature Source: Temporal Artery Scan - Pulse Right Brachial Pulse Rate: 93 Pulse Assessment Method: Automatic Cuff - Respirations Respiratory Rate: 16 Oxygen Delivery Method: Room Air O2 Sat by Pulse Oximetry: 98 - Blood Pressure Right Arm Blood Pressure: 111/58 Blood Pressure Mean: 75 Blood Pressure Source: Automatic Cuff Medical Screen Scoring (Pre) - Cervical Exam Dilation: Exam Deferred Effacement: Exam Deferred Membranes: Intact - Uterine Contractions Frequency: N/A Duration: N/A Intensity: N/A - Maternal Vital Signs Maternal Temperature: N/A Maternal Blood Pressure: N/A Signs of Preeclampsia: N/A Maternal Respirations: N/A - Pain Assessment Pain Scale Used: Numeric (1 - 10) Pain Intensity: 0 - Assessment Baseline FHR: 135 Heart Rate - NICHD Category: Category I (Normal) = 0 NST: Reactive Position: N/A - Total Score Total Score (Pre): 0 - Level of Risk Level of Risk: Low (0-5) Physician Notification (Pre) - Physician Notified Physician Notified Date: 09/18/18 Physician Notified Time: 06:12 Physician/Practitioner Notifed:: Dr. Constantino Spoke With: Dr. Constantino New Order Received: Yes - Notification Comment Comment: Dr. Constantino given report on pt in tr. vs wnl. reactive nst. reason for ER. visit. Orders recieved for Complete OB u/s Medical Screen Scoring (Post) - Assessment Heart Rate: 140 Heart Rate - NICHD Category: Category I (Normal) = 0 NST: Reactive Position: N/A Station: N/A - Total Score Total Score (Post): 0 - Post Treatment Level of Risk Post Treatment Level of Risk: Low (0-5) Physician Notification (Post) - Physician Notified Physician Notified Date: 09/18/18 Physician Notified Time: 07:30 Spoke With: dr constantino New Order Received: Yes - Notification Comment Comment: NST completed. may discharge to home with instructions Disposition - Disposition Discharge Date: 09/18/18 Discharge Time: 07:30 I agree with the RN Medical Screening Exam: Yes Risk & Benefit of care provided described in d/c instruction: Yes Diagnosis: RELATED CONDITIONS, UNSPECIFIED, THIRD TRIMESTER
== END 2018-09-18 07:30 | disposition home or self-care (01) ==
LOC: FBPOP 05:35
PROVIDERS: ATTEND Obstetrics & Gynecology
DX: O26.93 Pregnancy related conditions, unspecified, third trimester (principal); Z3A.29 29 weeks gestation of pregnancy
CPT/HCPCS: 59025; 76805; G0463; 99213

== ENCOUNTER 2018-10-14 23:00 | Observation (INO) | payer OTHER ==
[2018-10-15] MEDS: LACTATED RINGERS 1,000 ML IV SCH ×4 (00:34→07:56)
[2018-10-15] MEDS ORDERED: BETAMET ACET-BETAMETH SOD PHOS 6 MG/ML VIAL IM SCH (00:45)
--- NOTE | 2018-10-15 00:59 | P.HPOB ---
History of Present Illness H&P Date: 10/15/18 Chief Complaint: Intrauterine 33 and 5: labor Kristina is a 23-year-old female who earlier this evening had intercourse and was beginning to have contractions and pain. She came into labor and delivery angle every approximately 40 minutes initially but were not tracing well. heart tones had a category 1 tracing and otherwise did not show any gross abnormalities. She was initially dilated to 1 cm and thick not engaged and initially oral hydration was done. She just had intercourse or FFM was not able to be obtained. Also her an Essure was negative. Proxy one hour after arriving she was rechecked contractions were getting stronger and more consistent and she was then 2 cm. I immediately came in to labor and delivery to evaluate her myself and on exam she is dilated to 3 cm 80% effaced -3 station. She is Gurdeep had an IV initiated and has received 1 dose of steroids for lung maturity. Mag sulfate will be initiated risks and benefits of maxillary were discussed with the patient in detail and did include but were not limited to flush sensation feeling very funny or intoxicated. As well as pulmonary and respiratory issues. We'll initiate this therapy to try and tocolyse her to try and at least get enough time to for second dose of steroids. She is unstable for transfer at this time since she is made another centimeter change in only about half an hour. Should she continue to dilate mag sulfate will be discontinued and expectation for delivery will be made. Her course otherwise had been unremarkable. She relates that she had no other problems or symptoms during the . She relates that at 32 weeks or with her last she did go into labor but they reactive. It and she didn't deliver until 38 weeks. On physical exam vital signs are stable and afebrile. Heart regular, lungs clear, extremities without pain. Abdomen soft and nontender positive. Positive bowel sounds are noted. Gravid uterus is noted. We will plan on IV antiemetics for GBS prophylaxis in the event that she does continue to dilate. Past Medical History Past Medical History: Asthma History of Any Multi-Drug Resistant Organisms: None Reported Past Surgical History: No Surgical Hx Reported Smoking Status: Never smoker Medications and Allergies Home Medications Medication Instructions Recorded Confirmed Type Pnv No.95/Ferrous Fum/Folic AC 1 each PO DAILY 09/14/18 10/14/18 History [ Multivitamin Tablet] Allergies Allergy/AdvReac Type Severity Reaction Status Date / Time cephalexin [From Keflex] AdvReac Mild Itching Verified 10/14/18 23:25 Exam Osteopathic Statement: *. No significant issues noted on an osteopathic structural exam other than those noted in the History and Physical/Consult. Vital Signs Temp Pulse Resp BP 10/14/18 23:23 96.8 F L 130 H 18 127/77 Intake and Output 10/14/18 10/14/18 10/15/18 14:59 22:59 06:59 Other: Weight 78.471 kg
[2018-10-15] MEDS ORDERED: MAGNESIUM SULFATE-WATER PMX 20 GM in WATER FOR INJECTION 1 500ML.BAG IV SCH (01:00)
[2018-10-15] MEDS ORDERED: MAGNESIUM SULFATE GM 6 GM in SODIUM CHLORIDE 0.9% 100 ML IVPB ONE (01:00)
[2018-10-15 01:02] LABS: Basophils # (A) 0.1 k/uL (0-0.2); Basophils % (A) 0 %; Eosinophils # (A) 0.1 k/uL (0-0.7); Eosinophils % (A) 1 %; HCT 37.5 % (34.0-46.0); HGB 12.2 gm/dL (11.4-16.0); Lymphocytes # (A) 1.9 k/uL (1.0-4.8); Lymphocytes % (A) 18 %; MCH 27.8 pg (25.0-35.0); MCHC 32.6 g/dL (31.0-37.0); MCV 85.1 fL (80.0-100.0); Mean Platelet Volume 7.5; Monocytes # (A) 0.7 k/uL (0-1.0); Monocytes % (A) 7 %; Neutrophils # (A) 7.6 k/uL (1.3-7.7); Neutrophils % (A) 71 %; Platelet Count 210 k/uL (150-450); RBC 4.41 m/uL (3.80-5.40); WBC 10.6 k/uL (3.8-10.6)
[2018-10-15] MEDS ORDERED: AMPICILLIN 2,000 MG in SODIUM CHLORIDE 0.9% 100 ML IVPB STA (01:22)
[2018-10-15 01:25] LABS: Appearance,Urine Clear (Clear); Bacteria,Urine Rare /hpf; Bilirubin,Urine Negative (Negative); Blood,Urine Negative (Negative); Color,Urine Colorless; Glucose,Urine (UA) Negative (Negative); Ketones,Urine Negative (Negative); Leukocyte Esterase,Urine Moderate (Negative); Nitrite,Urine Negative (Negative); Protein,Urine Negative (Negative); RBC,Urine 1 /hpf (0-5); Specific Gravity,Urine 1.002 (1.001-1.035); Sperm,Urine Few /hpf; Squamous Epithelial Cell,Urine 1 /hpf (0-4); Urobilinogen,Urine <2.0 mg/dL (<2.0); WBC,Urine 6 /hpf (0-5)
[2018-10-15 02:11] VITALS: BMI 30.6
[2018-10-15 05:07] VITALS: RESP 16
[2018-10-15] MEDS: AMPICILLIN 1,000 MG in SODIUM CHLORIDE 0.9% 50 ML IVPB SCH ×2 (06:03→09:41)
[2018-10-15 08:16] VITALS: TEMP 97
[2018-10-15 09:35] VITALS: BP 137/72; PULSE 112
== END 2018-10-15 10:25 | disposition short-term general hospital (02) ==
LOC: FBPOP 23:00 → 4FBP 10-15 00:55 → INTOOBSV 10-15 00:55 → UNDODISIN 10-15 10:25
PROVIDERS: ADMIT Obstetrics & Gynecology; ATTEND Obstetrics & Gynecology
DX: O60.03 Preterm labor without delivery, third trimester (principal); O99.513 Diseases of the respiratory system complicating pregnancy, third trimester; J45.909 Unspecified asthma, uncomplicated; O09.213 Supervision of pregnancy with history of pre-term labor, third trimester; Z3A.33 33 weeks gestation of pregnancy; Z88.1 Allergy status to other antibiotic agents
CPT/HCPCS: 59025; 96365; 96367; 96372; 84112; 86900; 86901; 85025; 86850; 81001; G0463; G0378; J0702; J3475 ×2; J0290 ×2; 96360; 99214

== ENCOUNTER 2018-11-16 01:21 | Outpatient (CLI) | payer OTHER ==
[2018-11-16 03:15] VITALS: BP 133/83; PULSE 118; RESP 16; TEMP 97.7
--- NOTE | 2018-11-19 09:58 | P.MSEPDOC ---
Presenting Problems - Arrival Data Date of Arrival on Unit: 11/16/18 Time of Arrival on Unit: 01:21 Mode of Transport: Ambulatory - Complaint OB-Reason for Admission/Chief Complaint: Possible Onset of Labor Comment: ctx 2 min apart since 0000 Medical History - Information : 2 Para: 1 Term: 1 : 0 Abortions: Spontaneous or Elective: 0 Number of Living Children: 1 - Gestational Age Gestational Age by PAWEL (wks/days): 38 Weeks and 2 Days Review of Systems - Review of Systems Constitutional: No problems Breast: No problems ENT: No problems Cardiovascular: No problems Respiratory: No problems Gastrointestinal: No problems Genitourinary: No problems Musculoskeletal: No problems Neurological: No problems Skin: No problems Vital Signs - Temperature Temperature: 97.7 F Temperature Source: Temporal Artery Scan - Pulse Right Brachial Pulse Rate: 118 Pulse Assessment Method: Automatic Cuff - Respirations Respiratory Rate: 16 Oxygen Delivery Method: Room Air O2 Sat by Pulse Oximetry: 99 - Blood Pressure Right Arm Blood Pressure: 133/83 Blood Pressure Mean: 99 Blood Pressure Source: Automatic Cuff Medical Screen Scoring (Pre) - Cervical Exam Dilation: 1-3 cm = 1 Effacement: More than 50% = 2 Membranes: Intact - Uterine Contractions Frequency: > or = 36 weeks =2 Duration: > 40 seconds = 2 - Maternal Vital Signs Maternal Temperature: N/A Signs of Preeclampsia: N/A Maternal Respirations: N/A - Pain Assessment Pain Location and Character: Abdomen Pain Scale Used: Numeric (1 - 10) Pain Intensity: 8 Pain Description: *Acute, Tightness Pain Frequency: Intermittent Pain Duration: 2 Pain Duration Units: Hours Pain Behavior: None Exhibited - Maternal Trauma Maternal Trauma: N/A - Assessment Baseline FHR: 140 Heart Rate - NICHD Category: Category I (Normal) = 0 NST: Reactive Position: N/A - Total Score Total Score (Pre): 7 - Level of Risk Level of Risk: Medium (6-9) Medical Screen Scoring (Post) - Cervical Exam Dilation: 1-3 cm = 1 Effacement: More than 50% = 2 Membranes: Intact - Uterine Contractions Frequency: > or = 36 weeks =2 Duration: N/A - Total Score Total Score (Post): 5 - Post Treatment Level of Risk Post Treatment Level of Risk: Low (0-5) Physician Notification (Post) - Physician Notified Physician Notified Date: 11/16/18 Physician Notified Time: 03:00 Spoke With: Arie Messina Order Received: Yes - Notification Comment Comment: discharge with instruction, pt wishes to go home and come back with increased intensity Disposition - Disposition OB Disposition: Discharge to home, Written follow up instructions reviewed Discharge Date: 11/16/18 Discharge Time: 03:05 I agree with the RN Medical Screening Exam: Yes Risk & Benefit of care provided described in d/c instruction: Yes Diagnosis: FALSE LABOR AT OR AFTER 37 COMPLETED WEEKS OF GESTATION
== END 2018-11-16 03:05 | disposition home or self-care (01) ==
LOC: FBPOP 01:21
PROVIDERS: ATTEND Obstetrics & Gynecology
DX: O47.1 False labor at or after 37 completed weeks of gestation (principal); Z3A.38 38 weeks gestation of pregnancy
CPT/HCPCS: 59025; G0463; 99213

== ENCOUNTER 2018-11-21 05:50 | Inpatient (IN) | payer OTHER ==
[2018-11-21] MEDS ORDERED: CARBOPROST TROMETHAMINE 250 MCG/ML 1 ML AMP IM PRN (06:00)
[2018-11-21] MEDS ORDERED: OXYTOCIN 30 UNITS/500 ML NS 30 UNIT in SALINE 1 500ML.BAG IV SCH (06:00)
[2018-11-21] MEDS ORDERED: OXYTOCIN 10 UNIT/ML 1 ML VIAL IM PRN (06:00)
[2018-11-21] MEDS ORDERED: METHYLERGONOVINE 0.2 MG/ML 1 ML AMP IM PRN (06:00)
[2018-11-21] MEDS ORDERED: LACTATED RINGERS 1,000 ML IV SCH (06:00)
[2018-11-21] MEDS ORDERED: LIDOCAINE 0.5% (PF) 5 MG/ML (50 ML SDV) SQ PRN (06:00)
[2018-11-21] MEDS ORDERED: TERBUTALINE 1 MG/ML VIAL SQ PRN (06:00)
[2018-11-21 06:26] LABS: Basophils % (A) 0 %; Eosinophils # (A) 0.1 k/uL (0-0.7); Eosinophils % (A) 1 %; HCT 35.9 % (34.0-46.0); Lymphocytes # (A) 1.9 k/uL (1.0-4.8); Lymphocytes % (A) 25 %; MCH 25.7 pg (25.0-35.0); MCHC 33.6 g/dL (31.0-37.0); Mean Platelet Volume 8.4; Monocytes # (A) 0.5 k/uL (0-1.0); Monocytes % (A) 7 %; Neutrophils # (A) 4.8 k/uL (1.3-7.7); Neutrophils % (A) 64 %; Platelet Count 223 k/uL (150-450); Poikilocytosis Slight; RBC 4.68 m/uL (3.80-5.40); RDW 14.1 % (11.5-15.5); WBC 7.5 k/uL (3.8-10.6)
[2018-11-21 07:03] LABS: MCV 76.6 fL (80.0-100.0)
[2018-11-21 07:07] VITALS: BMI 32.1
--- NOTE | 2018-11-21 09:03 | P.HPOB ---
History of Present Illness H&P Date: 11/21/18 Chief Complaint: Induction of labor 23 year old presents at 39 weeks for induction of labor. HEr cervix is 3/80/-2. She is not angle. heart tones are 140 and category 1. Review of Systems All systems: negative Constitutional: Denies chills, Denies fever Eyes: denies blurred vision, denies pain Ears, nose, mouth and throat: Denies headache, Denies sore throat Cardiovascular: Denies chest pain, Denies shortness of breath Respiratory: Denies cough Gastrointestinal: Denies abdominal pain, Denies diarrhea, Denies nausea, Denies vomiting Genitourinary: Denies dysuria, Denies hematuria Musculoskeletal: Denies myalgias Integumentary: Denies pruritus, Denies rash Neurological: Denies numbness, Denies weakness Psychiatric: Denies anxiety, Denies depression Endocrine: Denies fatigue, Denies weight change Past Medical History Past Medical History: Asthma Additional Past Medical History / Comment(s): OB history: first was a vaginal delivery. This is her second . She has had care with [place] since 9 weeks. O+, abs neg, Rub Imm, RPR NR, Hep B neg, HIV NR, GBS neg. She is still positive for ureaplasma which seems resistant to zithromax. History of Any Multi-Drug Resistant Organisms: None Reported Past Surgical History: No Surgical Hx Reported Past Anesthesia/Blood Transfusion Reactions: No Reported Reaction Past Psychological History: ADD/ADHD, Anxiety Smoking Status: Never smoker Past Alcohol Use History: None Reported - Past Family History Father Additional Family Medical History / Comment(s): type 2 Mother Family Medical History: Cancer Additional Family Medical History / Comment(s): thyroid cancer Medications and Allergies Home Medications Medication Instructions Recorded Confirmed Type No Known Home Medications 11/16/18 11/21/18 History Allergies Allergy/AdvReac Type Severity Reaction Status Date / Time cephalexin [From Keflex] AdvReac Mild Itching Verified 11/21/18 06:00 Exam Osteopathic Statement: *. No significant issues noted on an osteopathic structural exam other than those noted in the History and Physical/Consult. Vital Signs Temp Pulse Resp BP 11/21/18 07:00 97.5 F L 91 14 118/75 Intake and Output 11/20/18 11/21/18 11/21/18 22:59 06:59 14:59 Other: # Voids 1 Weight 82.1 kg HEart: RRR Lungs: CTAB Abdomen: soft, nontender Extremeties: neg kalpana's Results Result Diagrams: 11/21/18 06:15 Abnormal Lab Results - Last 24 Hours (Table) 11/21/18 Range/Units 06:15 MCV 76.6 L D (80.0-100.0) fL Assessment and Plan (1) Normal labor Current Visit: Yes Status: Acute Code(s): O80 - ENCOUNTER FOR FULL-TERM UNCOMPLICATED DELIVERY; Z37.9 - OUTCOME OF DELIVERY, UNSPECIFIED SNOMED Code(s): 99681877 Plan: 1. Induction of labor with amniotomy and pitocin. 2. anticipate normal vaginal delivery
[2018-11-21] MEDS ORDERED: fentaNYL (PF) 50 MCG/ML 5 ML AMP ONE (09:24)
[2018-11-21] MEDS ORDERED: SODIUM CHLORIDE 0.9% 100 ML BAG ONE (09:24)
[2018-11-21] MEDS ORDERED: ROPIVACAINE 5MG/ML 20ML VIAL ONE (09:24)
[2018-11-21] MEDS ORDERED: diphenhydrAMINE 50 MG CAP PO PRN (12:36)
[2018-11-21] MEDS ORDERED: ZOLPIDEM 5 MG TAB PO PRN (12:36)
[2018-11-21] MEDS ORDERED: LANOLIN CREAM 5 GM TUBE TOPICAL PRN (12:36)
[2018-11-21] MEDS ORDERED: ACETAMINOPHEN TAB 325 MG TAB PO PRN (12:36)
[2018-11-21] MEDS ORDERED: diphenhydrAMINE 50 MG/ML 1 ML VIAL IVP PRN ×2 (12:36)
[2018-11-21] MEDS ORDERED: WITCH HAZEL 1 EACH MED..PAD TOPICAL PRN (12:36)
[2018-11-21] MEDS ORDERED: BENZOCAINE/MENTHOL SPRAY 1 GM/SPRAY AEROSOL TOPICAL PRN (12:36)
[2018-11-21] MEDS ORDERED: diphenhydrAMINE 25 MG CAP PO PRN (12:36)
[2018-11-21] MEDS ORDERED: SIMETHICONE 80 MG CHEWABLE PO PRN (12:36)
[2018-11-21] MEDS ORDERED: HYDROCORTISONE 2.5% RECTAL CREAM 30 GM TUBE RECTAL PRN (12:36)
--- NOTE | 2018-11-21 12:38 | P.PROBDLV ---
Vaginal Delivery Note - . Vaginal Delivery Note: 23-year-old presents at 39 weeks for induction of labor. Her cervix was 3 cm dilated, 80% effaced, and -1 station. She is angle irregularly. heart tones 130 with a category 1 tracing. Pitocin was started, amniotomy was performed at 7:44 AM and clear fluid noted. She progressed and did get an epidural. Her cervix was completely dilated by 1203, she pushed, delivered a viable male infant over intact perineum under epidural anesthesia at 1221. Head delivered OA, anterior shoulder delivered gentle downward guidance followed by posterior shoulder and rest of body. Nose and mouth bulb suctioned, cord clamped and cut, placed on mother's abdomen. Apgars 9, 9, weight 7 pounds 10.8 ounces. Placenta delivered spontaneously, intact with three-vessel cord at 1223. Vagina, cervix, perineum inspected. First-degree midline laceration was repaired with 3-0 Vicryl. Estimated blood loss 200 mL. Mother and baby in stable condition.
[2018-11-21] MEDS ORDERED: OXYTOCIN 20 UNITS/1000 ML NS 1,000 ML IV SCH (12:45)
[2018-11-21] MEDS: IBUPROFEN 600 MG TAB PO PRN ×2 (16:24→23:51)
[2018-11-22] MEDS: SENNOSIDES-DOCUSATE SODIUM 1 EACH TAB PO SCH ×2 (03:41→10:23)
--- NOTE | 2018-11-22 09:00 | P.DS ---
Providers Date of admission: 11/21/18 05:50 Expected date of discharge: 11/22/18 Attending physician: Beverly Sargent Primary care physician: Stated None - Discharge Diagnosis(es) (1) Normal labor Current Visit: Yes Status: Resolved (2) Normal vaginal delivery Current Visit: Yes Status: Acute Hospital Course: Patient presented for induction of labor. She underwent a normal vaginal delivery. Her post course was uncomplicated. She'll be discharged home day #1 in stable condition to follow-up with me in 6 weeks. Plan - Discharge Summary New Discharge Prescriptions: New Ibuprofen [Motrin] 600 mg PO Q6HR PRN #30 tab PRN Reason: Mild Pain Or Fever >= 100.5 Discharge Medication List Ibuprofen [Motrin] 600 mg PO Q6HR PRN #30 tab 11/22/18 [Rx] Follow up Appointment(s)/Referral(s): Beverly Sargent DO [Doctor of Osteopathic Medicine] - 6 Weeks Discharge Disposition: HOME SELF-CARE
[2018-11-22 11:08] VITALS: BP 118/62; PULSE 85; RESP 18; TEMP 97.7
== END 2018-11-22 15:25 | disposition home or self-care (01) | DRG 807 ==
LOC: 4FBP 05:50
PROVIDERS: ADMIT Obstetrics & Gynecology; ATTEND Obstetrics & Gynecology
PROC: 10E0XZZ Delivery of Products of Conception, External Approach (ICD-10-PCS; principal; 2018-11-21)
PROC: 0HQ9XZZ Repair Perineum Skin, External Approach (ICD-10-PCS; 2018-11-21)
PROC: 00HU33Z Insertion of Infusion Device into Spinal Canal, Percutaneous Approach (ICD-10-PCS; 2018-11-21)
PROC: 3E0R3NZ Introduction of Analgesics, Hypnotics, Sedatives into Spinal Canal, Percutaneous Approach (ICD-10-PCS; 2018-11-21)
PROC: 10907ZC Drainage of Amniotic Fluid, Therapeutic from Products of Conception, Via Natural or Artificial Opening (ICD-10-PCS; 2018-11-21)
DX: O70.0 First degree perineal laceration during delivery (principal); Z37.0 Single live birth; O99.52 Diseases of the respiratory system complicating childbirth; J45.909 Unspecified asthma, uncomplicated; Z3A.39 39 weeks gestation of pregnancy
CPT/HCPCS: 85025; 86850; 86900; 86901

== ENCOUNTER 2019-09-24 14:28 | Emergency (ER) | payer OTHER ==
[2019-09-24 14:31] VITALS: PULSE 95; TEMP 98.1
[2019-09-24] MEDS ORDERED: SODIUM CHLORIDE 0.9% 1,000 ML IV STA (14:48)
[2019-09-24] MEDS ORDERED: KETOROLAC 30 MG/ML 1 ML VIAL IVP STA (14:48)
[2019-09-24 15:26] LABS: ALT 26 U/L (4-34); AST 36 U/L (14-36); African American GFR (CKD) >90 (>60 ml/min/1.73 sqM); Albumin 4.5 g/dL (3.5-5.0); Alkaline Phosphatase 90 U/L (38-126); Amylase 52 U/L (30-110); Anion Gap 10 mmol/L; Blood Urea Nitrogen 9 mg/dL (7-17); Calcium 9.3 mg/dL (8.4-10.2); Carbon Dioxide 22 mmol/L (22-30); Chloride 106 mmol/L (98-107); Glucose 81 mg/dL (74-99); Non-African American GFR(CKD) >90 (>60 ml/min/1.73 sqM); Potassium 4.2 mmol/L (3.5-5.1); Sodium 138 mmol/L (137-145); Total Bilirubin 0.6 mg/dL (0.2-1.3); Total Protein 7.6 g/dL (6.3-8.2)
[2019-09-24 15:34] LABS: Appearance,Urine Cloudy (Clear); Bacteria,Urine Rare /hpf; Bilirubin,Urine Negative (Negative); Blood,Urine Negative (Negative); Color,Urine Yellow; Glucose,Urine (UA) Negative (Negative); Ketones,Urine Negative (Negative); Leukocyte Esterase,Urine Large (Negative); Mucus,Urine Occasional /hpf; Nitrite,Urine Negative (Negative); Protein,Urine Trace (Negative); RBC,Urine 8 /hpf (0-5); Specific Gravity,Urine 1.018 (1.001-1.035); Squamous Epithelial Cell,Urine 53 /hpf (0-4); Urobilinogen,Urine <2.0 mg/dL (<2.0); WBC,Urine 40 /hpf (0-5)
--- NOTE | 2019-09-24 16:10 | US ---
EXAMINATION TYPE: US transvaginal DATE OF EXAM: 09/24/2019 COMPARISON: NONE CLINICAL HISTORY: pelvic pain. Pelvic Pressure TECHNIQUE: Transvaginal (TV). Date of LMP: September 06, 2019 EXAM MEASUREMENTS: Uterus: 9.9 x 4.6 x 5.0 cm Endometrial Stripe: .9 cm Left Ovary: 2.6 x 1.6 x 2.1 cm 1. Uterus: Anteverted wnl 2. Endometrium: wnl 3. Right Ovary: Obscured by overlying bowel gas 4. Left Ovary: wnl Spectral, color and waveform doppler imaging shows good arterial and venous flow within the left ov myra; 5. Bilateral Adnexa: wnl 6. Posterior cul-de-sac: Trace Heterogeneous uterus. Trace free fluid in pelvic cul-de-sac on initial images and towards Towards the end of study. Endometrium not suspiciously thickened. Only normal sized left ovary identified. No suspicious right adnexal lesion. IMPRESSION: Nonvisualization of right ovary. No suspicious right adnexal masses. Trace free fluid in pelvic cul-de-sac, nonspecific finding
--- NOTE | 2019-09-24 16:10 | ED ---
Abdominal Pain HPI - General Chief Complaint: Abdominal Pain Stated Complaint: abd pain Time Seen by Provider: 09/24/19 14:39 Source: patient, RN notes reviewed Mode of arrival: ambulatory Limitations: no limitations - History of Present Illness Initial Comments: 24-year-old female presents emergency Department with chief complaint of lower abdominal pain. Patient states has been going on for over several multiple sick last few days intensified. She states that it seems to be just below her umbilicus. Patient reports no fevers or chills denies any current nausea vomiting diarrhea constipation. Patient has some mild dysuria, urinary frequency. Patient denies any vaginal bleeding or vaginal discharge denies any concerns for STDs. Patient states she has an appointment on with her RESIDENTIAL BUILDING INSPECTOR. Patient offers no other complaints. - Related Data Previous Rx's Medication Instructions Recorded Ibuprofen [Motrin] 600 mg PO Q6HR PRN #30 tab 11/22/18 Sulfamethox-Tmp 800-160Mg [Bactrim 1 each PO Q12HR #14 tab 09/24/19 Ds] Allergies Allergy/AdvReac Type Severity Reaction Status Date / Time cephalexin [From Keflex] AdvReac Mild Itching Verified 11/21/18 06:00 Review of Systems ROS Statement: Those systems with pertinent positive or pertinent negative responses have been documented in the HPI. ROS Other: All systems not noted in ROS Statement are negative. Past Medical History Past Medical History: Asthma Additional Past Medical History / Comment(s): OB history: first was a vaginal delivery. This is her second . She has had care with [place] since 9 weeks. O+, abs neg, Rub Imm, RPR NR, Hep B neg, HIV NR, GBS neg. She is still positive for ureaplasma which seems resistant to zithromax. History of Any Multi-Drug Resistant Organisms: None Reported Past Surgical History: No Surgical Hx Reported Past Anesthesia/Blood Transfusion Reactions: No Reported Reaction Past Psychological History: ADD/ADHD, Anxiety Smoking Status: Never smoker Past Alcohol Use History: None Reported - Past Family History Father Additional Family Medical History / Comment(s): type 2 Mother Family Medical History: Cancer Additional Family Medical History / Comment(s): thyroid cancer General Exam Limitations: no limitations General appearance: alert, in no apparent distress Head exam: Present: atraumatic, normocephalic, normal inspection Eye exam: Present: normal appearance, PERRL, EOMI. Absent: scleral icterus, conjunctival injection, periorbital swelling ENT exam: Present: normal exam, normal oropharynx, mucous membranes moist Neck exam: Present: normal inspection, full ROM. Absent: tenderness, meningismus, lymphadenopathy Respiratory exam: Present: normal lung sounds bilaterally. Absent: respiratory distress, wheezes, rales, rhonchi, stridor Cardiovascular Exam: Present: regular rate, normal rhythm, normal heart sounds. Absent: systolic murmur, diastolic murmur, rubs, gallop, clicks GI/Abdominal exam: Present: soft, tenderness (Mild suprapubic tenderness), normal bowel sounds. Absent: distended, guarding, rebound, rigid Course Vital Signs 09/24/19 14:29 Temperature 98.1 F Pulse Rate 95 Respiratory 20 Rate Blood Pressure 145/93 O2 Sat by Pulse 97 Oximetry Medical Decision Making - Medical Decision Making Patient ultrasound does not show any suspicious findings other than trace fluid. Patient does have evidence of urinary tract infection. Patient was placed on antibiotics. Patient will follow-up with her RESIDENTIAL BUILDING INSPECTOR for further evaluation. Return parameters were discussed. Patient does not have concerns for STD does not want pelvic exam this time. - Lab Data Result diagrams: 09/24/19 16:25 09/24/19 15:07 Lab Results 09/24/19 09/24/19 09/24/19 Range/Units 15:07 15:10 15:10 WBC (3.8-10.6) k/uL RBC (3.80-5.40) m/uL Hgb (11.4-16.0) gm/dL Hct (34.0-46.0) % MCV (80.0-100.0) fL MCH (25.0-35.0) pg MCHC (31.0-37.0) g/dL RDW (11.5-15.5) % Plt Count (150-450) k/uL Neutrophils % % Lymphocytes % % Monocytes % % Eosinophils % % Basophils % % Neutrophils # (1.3-7.7) k/uL Lymphocytes # (1.0-4.8) k/uL Monocytes # (0-1.0) k/uL Eosinophils # (0-0.7) k/uL Basophils # (0-0.2) k/uL Sodium 138 (137-145) mmol/L Potassium 4.2 (3.5-5.1) mmol/L Chloride 106 (98-107) mmol/L Carbon Dioxide 22 (22-30) mmol/L Anion Gap 10 mmol/L BUN 9 (7-17) mg/dL Creatinine 0.58 (0.52-1.04) mg/dL Est GFR (CKD-EPI)AfAm >90 (>60 ml/min/1.73 sqM) Est GFR (CKD-EPI)NonAf >90 (>60 ml/min/1.73 sqM) Glucose 81 (74-99) mg/dL Calcium 9.3 (8.4-10.2) mg/dL Total Bilirubin 0.6 (0.2-1.3) mg/dL AST 36 (14-36) U/L ALT 26 (4-34) U/L Alkaline Phosphatase 90 (38-126) U/L Total Protein 7.6 (6.3-8.2) g/dL Albumin 4.5 (3.5-5.0) g/dL Amylase 52 (30-110) U/L Lipase 63 (23-300) U/L Urine Color Yellow Urine Appearance Cloudy H (Clear) Urine pH 6.0 (5.0-8.0) Ur Specific [place] 1.018 (1.001-1.035) Urine Protein Trace H (Negative) Urine Glucose (UA) Negative (Negative) Urine Ketones Negative (Negative) Urine Blood Negative (Negative) Urine Nitrite Negative (Negative) Urine Bilirubin Negative (Negative) Urine Urobilinogen <2.0 (<2.0) mg/dL Ur Leukocyte Esterase Large H (Negative) Urine RBC 8 H (0-5) /hpf Urine WBC 40 H (0-5) /hpf Ur Squamous Epith Cells 53 H (0-4) /hpf Urine Bacteria Rare H (None) /hpf Urine Mucus Occasional H (None) /hpf Urine HCG, Qual Not Detected (Not Detectd) 09/24/19 Range/Units 16:25 WBC 7.9 (3.8-10.6) k/uL RBC 4.73 (3.80-5.40) m/uL Hgb 13.4 (11.4-16.0) gm/dL Hct 40.4 (34.0-46.0) % MCV 85.4 (80.0-100.0) fL MCH 28.4 (25.0-35.0) pg MCHC 33.3 (31.0-37.0) g/dL RDW 12.4 (11.5-15.5) % Plt Count 222 (150-450) k/uL Neutrophils % 75 % Lymphocytes % 18 % Monocytes % 5 % Eosinophils % 1 % Basophils % 0 % Neutrophils # 5.9 (1.3-7.7) k/uL Lymphocytes # 1.4 (1.0-4.8) k/uL Monocytes # 0.4 (0-1.0) k/uL Eosinophils # 0.1 (0-0.7) k/uL Basophils # 0.0 (0-0.2) k/uL Sodium (137-145) mmol/L Potassium (3.5-5.1) mmol/L Chloride (98-107) mmol/L Carbon Dioxide (22-30) mmol/L Anion Gap mmol/L BUN (7-17) mg/dL Creatinine (0.52-1.04) mg/dL Est GFR (CKD-EPI)AfAm (>60 ml/min/1.73 sqM) Est GFR (CKD-EPI)NonAf (>60 ml/min/1.73 sqM) Glucose (74-99) mg/dL Calcium (8.4-10.2) mg/dL Total Bilirubin (0.2-1.3) mg/dL AST (14-36) U/L ALT (4-34) U/L Alkaline Phosphatase (38-126) U/L Total Protein (6.3-8.2) g/dL Albumin (3.5-5.0) g/dL Amylase (30-110) U/L Lipase (23-300) U/L Urine Color Urine Appearance (Clear) Urine pH (5.0-8.0) Ur Specific [place] (1.001-1.035) Urine Protein (Negative) Urine Glucose (UA) (Negative) Urine Ketones (Negative) Urine Blood (Negative) Urine Nitrite (Negative) Urine Bilirubin (Negative) Urine Urobilinogen (<2.0) mg/dL Ur Leukocyte Esterase (Negative) Urine RBC (0-5) /hpf Urine WBC (0-5) /hpf Ur Squamous Epith Cells (0-4) /hpf Urine Bacteria (None) /hpf Urine Mucus (None) /hpf Urine HCG, Qual (Not Detectd) Disposition Clinical Impression: UTI (urinary tract infection), Pelvic pain Disposition: HOME SELF-CARE Condition: Stable Instructions (If sedation given, give patient instructions): Urinary Tract Infection in Women (ED) Additional Instructions: Please return to the Emergency Department if symptoms worsen or any other concerns. Prescriptions: Sulfamethox-Tmp 800-160Mg [Bactrim Ds] 1 each PO Q12HR #14 tab Is patient prescribed a controlled substance at d/c from ED?: No Referrals: Ronald Booth MD [Primary Care Provider] - 1-2 days Time of Disposition: 16:37
[2019-09-24 16:32] LABS: Basophils % (A) 0 %; Eosinophils # (A) 0.1 k/uL (0-0.7); Eosinophils % (A) 1 %; HCT 40.4 % (34.0-46.0); HGB 13.4 gm/dL (11.4-16.0); Lymphocytes # (A) 1.4 k/uL (1.0-4.8); Lymphocytes % (A) 18 %; MCH 28.4 pg (25.0-35.0); MCHC 33.3 g/dL (31.0-37.0); MCV 85.4 fL (80.0-100.0); Monocytes # (A) 0.4 k/uL (0-1.0); Monocytes % (A) 5 %; Neutrophils # (A) 5.9 k/uL (1.3-7.7); Neutrophils % (A) 75 %; Platelet Count 222 k/uL (150-450); RBC 4.73 m/uL (3.80-5.40); RDW 12.4 % (11.5-15.5); WBC 7.9 k/uL (3.8-10.6)
[2019-09-24 16:53] VITALS: BP 127/85; RESP 16
== END 2019-09-24 16:55 | disposition home or self-care (01) ==
LOC: EC 14:28
DX: N39.0 Urinary tract infection, site not specified (principal); R10.2 Pelvic and perineal pain; Z88.1 Allergy status to other antibiotic agents
CPT/HCPCS: 36415; 80053; 82150; 83690; 85025; 81001; 81025; 87086; 93976; 76830; 99284; 96374; 96361; J1885

== ENCOUNTER → 2020-09-14 | Outpatient (CLI) | payer OTHER ==
--- NOTE | 2020-09-14 16:12 | XR ---
EXAMINATION TYPE: XR hand limited RT DATE OF EXAM: 09/14/2020 COMPARISON: NONE HISTORY: 24-year-old female M79.641, pain to the distal fifth digit. TECHNIQUE: 2 views FINDINGS: There is some bony irregularity along the dorsal aspect of the fifth distal phalangeal base without a ny clear fracture lucency seen. Otherwise, no acute fracture, subluxation, dislocation. IMPRESSION: Some bony irregularity along the dorsal aspect of the fifth distal phalangeal base on the lateral vie w but without a clear fracture lucency seen. Findings may reflect sequela of remote injury to the ext ensor tendon insertion/mallet finger. Consider follow-up coned-down views of the fifth digit to exclu de a subtle acute injury here.
== END | disposition home or self-care (01) ==
LOC: RADXRMAIN 14:11
PROVIDERS: ATTEND Internal Medicine
DX: M25.841 Other specified joint disorders, right hand (principal)

== ENCOUNTER → 2020-10-21 | Outpatient (CLI) | payer OTHER ==
[2020-10-21 19:39] LABS: Basophils # (A) 0.04 X 10*3/uL (0.00-0.10); Basophils % (A) 0.5 %; Eosinophils # (A) 0.22 X 10*3/uL (0.04-0.35); Eosinophils % (A) 2.8 %; HCT 44.8 % (37.2-46.3); HGB 14.1 g/dL (12.0-15.0); Lymphocytes # (A) 1.81 X 10*3/uL (0.90-5.00); Lymphocytes % (A) 22.7 %; MCH 28.2 pg (27.0-32.0); MCHC 31.5 g/dL (32.0-37.0); MCV 89.6 fL (80.0-97.0); Mean Platelet Volume 11.1 fL (9.5-12.2); Monocytes # (A) 0.68 X 10*3/uL (0.20-1.00); Monocytes % (A) 8.5 %; Neutrophils # (A) 5.19 X 10*3/uL (1.80-7.70); Platelet Count 292 X 10*3/uL (140-440); RDW 13.1 % (11.5-14.5); WBC 7.98 X 10*3/uL (4.50-10.00)
[2020-10-22 01:10] LABS: African American GFR (CKD) 140.6 (60.0-200.0); Non-African American GFR(CKD) 121.3 (60.0-200.0)
[2020-10-22 01:17] LABS: T4, Free (Free Thyroxine) 0.9 ng/dL (0.80-1.80)
== END | disposition home or self-care (01) ==
LOC: LABWHC1 12:00
PROVIDERS: ATTEND Dermatology
DX: L65.0 Telogen effluvium (principal); F43.0 Acute stress reaction
CPT/HCPCS: 36415; 82565; 84439; 84443; 84450; 84460; 84520; 85025

== ENCOUNTER 2021-12-11 19:49 | Emergency (ER) | payer OTHER ==
[2021-12-11] MEDS ORDERED: SODIUM CHLORIDE 0.9% 2,000 ML IV STA (20:03)
[2021-12-11] MEDS ORDERED: ONDANSETRON 4 MG/2 ML VIAL IVP STA (20:04)
[2021-12-11 21:51] LABS: Basophils # (A) 0.1 k/uL (0-0.2); Basophils % (A) 2 %; Eosinophils % (A) 1 %; HCT 43.1 % (34.0-46.0); HGB 14.3 gm/dL (11.4-16.0); Lymphocytes % (A) 19 %; MCHC 33.1 g/dL (31.0-37.0); MCV 87.8 fL (80.0-100.0); Mean Platelet Volume 8.4; Monocytes # (A) 0.7 k/uL (0-1.0); Monocytes % (A) 14 %; Neutrophils # (A) 3.1 k/uL (1.3-7.7); Neutrophils % (A) 62 %; Platelet Count 184 k/uL (150-450); RBC 4.91 m/uL (3.80-5.40); RDW 12.5 % (11.5-15.5); WBC 4.9 k/uL (3.8-10.6)
[2021-12-11 22:19] LABS: ALT 13 U/L (4-34); AST 23 U/L (14-36); African American GFR (CKD) >90 (>60 ml/min/1.73 sqM); Albumin 3.5 g/dL (3.5-5.0); Alkaline Phosphatase 45 U/L (38-126); Anion Gap 8 mmol/L; Blood Urea Nitrogen 7 mg/dL (7-17); Carbon Dioxide 20 mmol/L (22-30); Chloride 107 mmol/L (98-107); Glucose 85 mg/dL (74-99); Lipase 50 U/L (23-300); Non-African American GFR(CKD) >90 (>60 ml/min/1.73 sqM); Potassium 3.3 mmol/L (3.5-5.1); Sodium 135 mmol/L (137-145); Total Bilirubin 0.4 mg/dL (0.2-1.3); Total Protein 6.2 g/dL (6.3-8.2)
[2021-12-11 22:24] LABS: Appearance,Urine Cloudy (Clear); Bilirubin,Urine Negative (Negative); Blood,Urine Negative (Negative); Color,Urine Yellow; Glucose,Urine (UA) Negative (Negative); Ketones,Urine 1+ (Negative); Leukocyte Esterase,Urine Small (Negative); Mucus,Urine Many /hpf; Nitrite,Urine Negative (Negative); Protein,Urine Trace (Negative); RBC,Urine 1 /hpf (0-5); Squamous Epithelial Cell,Urine 20 /hpf (0-4); Urobilinogen,Urine <2.0 mg/dL (<2.0); WBC,Urine 2 /hpf (0-5)
[2021-12-11] MEDS ORDERED: ONDANSETRON 4 MG ODT STARTER PACK 2 TAB BTL PO STA (22:53)
--- NOTE | 2021-12-11 22:56 | ED ---
Nausea/Vomiting/Diarrhea HPI - General Chief complaint: Nausea/Vomiting/Diarrhea Stated complaint: 6 weeks preg,Vomiting Time Seen by Provider: 12/11/21 19:54 Source: patient Mode of arrival: ambulatory Limitations: no limitations - History of Present Illness Initial comments: She has a 26-year-old A1 female at 6 weeks who reports to the e mergency department with a chief complaint of nausea and vomiting. Patient states her son has influenza at home. Patient states morning sickness is typical of her but for the past day she has been vomiting excessively which is abnormal for her. Patient has mild body aches but otherwise has no complaints. She denies fever, chills, headache, congestion, sore throat, shortness of breath, cough, chest pain, abdominal pain, diarrhea, burning with urination, and vaginal bleeding. Patient is scheduled to see Dr. Sargent mid- December. - Related Data Previous Rx's Medication Instructions Recorded Ibuprofen [Motrin] 600 mg PO Q6HR PRN #30 tab 11/22/18 Sulfamethox-Tmp 800-160Mg [Bactrim 1 each PO Q12HR #14 tab 09/24/19 Ds] Ondansetron Odt [Zofran Odt] 4 mg PO Q8HR PRN #21 tab 12/11/21 Allergies Allergy/AdvReac Type Severity Reaction Status Date / Time cephalexin [From Keflex] AdvReac Mild Itching Verified 12/11/21 19:53 Review of Systems ROS Statement: Those systems with pertinent positive or pertinent negative responses have been documented in the HPI. ROS Other: All systems not noted in ROS Statement are negative. Past Medical History Past Medical History: Asthma Additional Past Medical History / Comment(s): OB history: first was a vaginal delivery. This is her second . She has had care with [place] since 9 weeks. O+, abs neg, Rub Imm, RPR NR, Hep B neg, HIV NR, GBS neg. She is still positive for ureaplasma which seems resistant to zithromax. History of Any Multi-Drug Resistant Organisms: None Reported Past Surgical History: No Surgical Hx Reported Past Anesthesia/Blood Transfusion Reactions: No Reported Reaction Past Psychological History: ADD/ADHD, Anxiety Smoking Status: Never smoker Past Alcohol Use History: None Reported Past Drug Use History: None Reported - Past Family History Father Additional Family Medical History / Comment(s): type 2 Mother Family Medical History: Cancer Additional Family Medical History / Comment(s): thyroid cancer General Exam Limitations: no limitations General appearance: alert, in no apparent distress Head exam: Present: atraumatic, normocephalic, normal inspection Eye exam: Present: normal appearance, PERRL, EOMI. Absent: scleral icterus, conjunctival injection, periorbital swelling ENT exam: Present: normal oropharynx Neck exam: Present: normal inspection Respiratory exam: Present: normal lung sounds bilaterally. Absent: respiratory distress, wheezes, rales, rhonchi, stridor Cardiovascular Exam: Present: regular rate, normal rhythm, normal heart sounds. Absent: systolic murmur, diastolic murmur, rubs, gallop, clicks GI/Abdominal exam: Present: soft, normal bowel sounds. Absent: distended, tenderness, guarding, rebound, rigid Back exam: Present: normal inspection. Absent: CVA tenderness (R), CVA tenderness (L) Neurological exam: Present: alert, oriented X3, CN II-XII intact Psychiatric exam: Present: normal affect, normal mood Skin exam: Present: warm, dry, intact, normal color. Absent: rash Course Vital Signs 12/11/21 12/11/21 19:51 23:27 Temperature 99.1 F 97.8 F Pulse Rate 85 82 Respiratory 18 20 Rate Blood Pressure 124/74 126/78 O2 Sat by Pulse 99 98 Oximetry Medical Decision Making - Medical Decision Making This is a 26-year-old female at 6 weeks who presents with nausea and vomiting. Thorough history and examination were performed. Patient is hemodynamically stable and afebrile. She is well-appearing and is in no apparent distress. Her son was diagnosed with influenza yesterday. Patient has no abdominal pain or vaginal bleeding. The abdomen is soft and nontender. Laboratory studies were relatively unremarkable. Patient has normal white count. Unfortunately at this time we are out of influenza testing throughout the entire hospital therefore influenza cannot be tested. My clinical suspicion is high. Patient given Zofran and large fluid bolus. On reevaluation patient states she is feeling much better. Patient will be discharged with Zofran prescription. We also discussed potential benefit of OTC vitamin B6 and Unisom for nausea and vomiting in which patient is eager to try as she states her symptoms occur more at night while she is trying to sleep. She is instructed to not operate machinery while taking Unisom. She is instructed to follow-up with her FABRIC AND TEXTILE FACTORY WORKER as scheduled. Return parameters discussed. Patient verbalizes und erstanding and is agreeable to this plan. Dr. Connell is my attending. - Lab Data Result diagrams: 12/11/21 21:33 12/11/21 22:00 Lab Results 12/11/21 12/11/21 12/11/21 Range/Units 21:33 21:52 22:00 WBC 4.9 (3.8-10.6) k/uL RBC 4.91 (3.80-5.40) m/uL Hgb 14.3 (11.4-16.0) gm/dL Hct 43.1 (34.0-46.0) % MCV 87.8 (80.0-100.0) fL MCH 29.0 (25.0-35.0) pg MCHC 33.1 (31.0-37.0) g/dL RDW 12.5 (11.5-15.5) % Plt Count 184 (150-450) k/uL MPV 8.4 Neutrophils % 62 % Lymphocytes % 19 % Monocytes % 14 % Eosinophils % 1 % Basophils % 2 % Neutrophils # 3.1 (1.3-7.7) k/uL Lymphocytes # 1.0 (1.0-4.8) k/uL Monocytes # 0.7 (0-1.0) k/uL Eosinophils # 0.0 (0-0.7) k/uL Basophils # 0.1 (0-0.2) k/uL Sodium 135 L (137-145) mmol/L Potassium 3.3 L (3.5-5.1) mmol/L Chloride 107 (98-107) mmol/L Carbon Dioxide 20 L (22-30) mmol/L Anion Gap 8 mmol/L BUN 7 (7-17) mg/dL Creatinine 0.45 L (0.52-1.04) mg/dL Est GFR (CKD-EPI)AfAm >90 (>60 ml/min/1.73 sqM) Est GFR (CKD-EPI)NonAf >90 (>60 ml/min/1.73 sqM) Glucose 85 (74-99) mg/dL Calcium 8.0 L (8.4-10.2) mg/dL Total Bilirubin 0.4 (0.2-1.3) mg/dL AST 23 (14-36) U/L ALT 13 (4-34) U/L Alkaline Phosphatase 45 (38-126) U/L Total Protein 6.2 L (6.3-8.2) g/dL Albumin 3.5 (3.5-5.0) g/dL Lipase 50 (23-300) U/L Urine Color Yellow Urine Appearance Cloudy H (Clear) Urine pH 6.0 (5.0-8.0) Ur Specific [place] 1.030 (1.001-1.035) Urine Protein Trace H (Negative) Urine Glucose (UA) Negative (Negative) Urine Ketones 1+ H (Negative) Urine Blood Negative (Negative) Urine Nitrite Negative (Negative) Urine Bilirubin Negative (Negative) Urine Urobilinogen <2.0 (<2.0) mg/dL Ur Leukocyte Esterase Small H (Negative) Urine RBC 1 (0-5) /hpf Urine WBC 2 (0-5) /hpf Ur Squamous Epith Cells 20 H (0-4) /hpf Urine Mucus Many H (None) /hpf Disposition Clinical Impression: Nausea and vomiting during prior to 22 weeks gestation Disposition: HOME SELF-CARE Condition: Good Instructions (If sedation given, give patient instructions): Nausea and Vomiting in (ED) Additional Instructions: Please take Zofran as directed. You may take [id number] vitamin B6 and Unisom together for nausea and vomiting. Please do not operate machinery while taking Unisom as it can cause drowsiness. Follow-up with your FABRIC AND TEXTILE FACTORY WORKER as scheduled. Return to the emergency department if you experience new, concerning, or worsening symptoms. Prescriptions: Ondansetron Odt [Zofran Odt] 4 mg PO Q8HR PRN #21 tab PRN Reason: Nausea Is patient prescribed a controlled substance at d/c from ED?: No Referrals: Ronald Booth MD [Primary Care Provider] - 1-2 days Time of Disposition: 22:56
[2021-12-11 23:28] VITALS: BP 126/78; PULSE 82; RESP 20; TEMP 97.8
== END 2021-12-11 23:27 | disposition home or self-care (01) ==
LOC: EC 19:49
DX: O21.9 Vomiting of pregnancy, unspecified (principal); Z3A.01 Less than 8 weeks gestation of pregnancy
CPT/HCPCS: 36415; 80053; 83690; 85025; 81001; 99284; 96374; 96361; J2405; S0119

== ENCOUNTER → 2022-01-19 | Outpatient (CLI) | payer OTHER ==
--- NOTE | 2022-01-19 10:56 | US ---
EXAMINATION TYPE: Transabdominal DATE OF EXAM: 01/19/2022 10:31 AM COMPARISON: NONE CLINICAL HISTORY: Z36.89 CONFIRM GESTATIONAL DATES AND VIABILITY. Dates EXAM PERFORMED: Transabdominal (TA) EXAM MEASUREMENTS: GESTATIONAL AGE / DATING Physician Established: Not yet established Dates by LMP: (12 weeks/2 days) EDC: 10/25/2021 Dates by First Scan: No previous this is first scan Dates by Current Scan for: (12 weeks/5 days) EDC: 07/29/2022 MATERNAL ANATOMY Uterus: 14.3 x10.1 x 7.1 cm Right Ovary: 2.4 x 1.5 x 1.8 cm Left Ovary: Not visualized Post CDS / Adnexa: no free fluid Presence of free fluid: no Presence of corpus luteal cyst: no Presence of subchorionic bleed: no GESTATION / SURVEY CRL: 6.3 cm (12 weeks/5 days) MSD: seen, not measured Yolk Sac (normal less than 6mm): not visualized Heart Rate: 149 bpm Rhythm: Normal IUP: Viable IUP Date of LMP: 10/25/2021, Beta HcG (if available): Not available at this time Single live IUP measuring 12 weeks 5 days IMPRESSION: Viable 12 week 5 day gestation with a heart rate 149 bpm.
== END | disposition home or self-care (01) ==
LOC: RADUSWWP 10:10
PROVIDERS: ATTEND Obstetrics & Gynecology
DX: Z36.89 Encounter for other specified antenatal screening (principal); Z3A.12 12 weeks gestation of pregnancy
CPT/HCPCS: 76801

== ENCOUNTER 2022-02-18 11:35 | Emergency (ER) | payer OTHER ==
[2022-02-18 13:09] VITALS: BP 115/79; PULSE 99; RESP 20; TEMP 97.5
[2022-02-18] MEDS ORDERED: SODIUM CHLORIDE 0.9% 2,000 ML IV STA (15:33)
[2022-02-18] MEDS ORDERED: ONDANSETRON 4 MG/2 ML VIAL IVP STA (15:33)
[2022-02-18] MEDS ORDERED: FAMOTIDINE 20 MG/2 ML VIAL IV STA (15:33)
--- NOTE | 2022-02-18 15:38 | ED ---
General Adult HPI - General Chief complaint: Nausea/Vomiting/Diarrhea Stated complaint: 16wks preg, vomiting Time Seen by Provider: 02/18/22 15:14 Source: patient, RN notes reviewed Mode of arrival: ambulatory Limitations: no limitations - History of Present Illness Initial comments: Patient is a pleasant 26-year-old female presenting to the emergency department with nausea vomiting. Onset of symptoms was 3 days ago. Patient is vomiting up to 8 times daily. No diarrhea. Patient is having some mild cramping in her abdomen, more so on her sides. No dysuria. No fevers. No history of chronic similar symptoms previously. - Related Data Previous Rx's Medication Instructions Recorded Ibuprofen [Motrin] 600 mg PO Q6HR PRN #30 tab 11/22/18 Sulfamethox-Tmp 800-160Mg [Bactrim 1 each PO Q12HR #14 tab 09/24/19 Ds] Ondansetron Odt [Zofran Odt] 4 mg PO Q8HR PRN #21 tab 12/11/21 Allergies Allergy/AdvReac Type Severity Reaction Status Date / Time cephalexin [From Keflex] AdvReac Mild Itching Verified 02/18/22 13:09 Review of Systems ROS Statement: Those systems with pertinent positive or pertinent negative responses have been documented in the HPI. ROS Other: All systems not noted in ROS Statement are negative. Constitutional: Denies: fever Eyes: Denies: eye pain ENT: Denies: ear pain Respiratory: Denies: cough Cardiovascular: Denies: chest pain Endocrine: Denies: fatigue Gastrointestinal: Reports: as per HPI, nausea, vomiting Genitourinary: Reports: other (No vaginal bleeding). Denies: dysuria Musculoskeletal: Denies: back pain Skin: Denies: rash Neurological: Denies: weakness Past Medical History Past Medical History: Asthma Additional Past Medical History / Comment(s): OB history: first was a vaginal delivery. This is her second . She has had care with me since 9 weeks. O+, abs neg, Rub Imm, RPR NR, Hep B neg, HIV NR, GBS neg. She is still positive for ureaplasma which seems resistant to zithromax. History of Any Multi-Drug Resistant Organisms: None Reported Past Surgical History: No Surgical Hx Reported Past Anesthesia/Blood Transfusion Reactions: No Reported Reaction Past Psychological History: ADD/ADHD, Anxiety Smoking Status: Never smoker Past Alcohol Use History: None Reported Past Drug Use History: None Reported - Past Family History Father Additional Family Medical History / Comment(s): type 2 Mother Family Medical History: Cancer Additional Family Medical History / Comment(s): thyroid cancer General Exam Limitations: no limitations General appearance: alert, in no apparent distress Head exam: Present: normocephalic Eye exam: Present: normal appearance ENT exam: Present: normal oropharynx Neck exam: Present: normal inspection Respiratory exam: Present: normal lung sounds bilaterally Cardiovascular Exam: Present: regular rate, normal rhythm Expanded Peripheral pulses: 2+: Posterior Tibialis (R), Posterior Tibialis (L) GI/Abdominal exam: Present: soft, normal bowel sounds. Absent: tenderness, guarding, rebound, rigid, pulsatile mass Extremities exam: Present: normal inspection Neurological exam: Present: alert Psychiatric exam: Present: normal affect, normal mood Skin exam: Present: normal color Course Vital Signs 02/18/22 13:07 Temperature 97.5 F L Pulse Rate 99 Respiratory 20 Rate Blood Pressure 115/79 O2 Sat by Pulse 97 Oximetry Medical Decision Making - Medical Decision Making Patient reevaluated and resting comfortably in bed. Patient is feeling somewhat better. Patient updated on results and need for follow-up. - Lab Data Result diagrams: 02/18/22 16:09 02/18/22 16:09 Lab Results 02/18/22 02/18/22 02/18/22 Range/Units 16:09 16:09 16:15 WBC 7.1 (3.8-10.6) k/uL RBC 4.77 (3.80-5.40) m/uL Hgb 14.2 (11.4-16.0) gm/dL Hct 41.2 (34.0-46.0) % MCV 86.4 (80.0-100.0) fL MCH 29.7 (25.0-35.0) pg MCHC 34.4 (31.0-37.0) g/dL RDW 13.1 (11.5-15.5) % Plt Count 206 (150-450) k/uL MPV 7.4 Neutrophils % 85 % Lymphocytes % 5 % Monocytes % 8 % Eosinophils % 0 % Basophils % 0 % Neutrophils # 6.1 (1.3-7.7) k/uL Lymphocytes # 0.4 L (1.0-4.8) k/uL Monocytes # 0.6 (0-1.0) k/uL Eosinophils # 0.0 (0-0.7) k/uL Basophils # 0.0 (0-0.2) k/uL Sodium 133 L (137-145) mmol/L Potassium 4.0 (3.5-5.1) mmol/L Chloride 101 (98-107) mmol/L Carbon Dioxide 22 (22-30) mmol/L Anion Gap 10 mmol/L BUN 10 (7-17) mg/dL Creatinine 0.49 L (0.52-1.04) mg/dL Est GFR (CKD-EPI)AfAm >90 (>60 ml/min/1.73 sqM) Est GFR (CKD-EPI)NonAf >90 (>60 ml/min/1.73 sqM) Glucose 81 (74-99) mg/dL Calcium 9.3 (8.4-10.2) mg/dL Total Bilirubin 0.5 (0.2-1.3) mg/dL AST 23 (14-36) U/L ALT 11 (4-34) U/L Alkaline Phosphatase 73 (38-126) U/L Total Protein 7.4 (6.3-8.2) g/dL Albumin 4.4 (3.5-5.0) g/dL Amylase 81 (30-110) U/L Lipase 68 (23-300) U/L Urine Color Yellow Urine Appearance Cloudy H (Clear) Urine pH 6.0 (5.0-8.0) Ur Specific [place] 1.035 (1.001-1.035) Urine Protein 1+ H (Negative) Urine Glucose (UA) Negative (Negative) Urine Ketones 4+ H (Negative) Urine Blood Negative (Negative) Urine Nitrite Negative (Negative) Urine Bilirubin Negative (Negative) Urine Urobilinogen 2.0 (<2.0) mg/dL Ur Leukocyte Esterase Trace H (Negative) Urine RBC 4 (0-5) /hpf Urine WBC 2 (0-5) /hpf Ur Squamous Epith Cells 8 H (0-4) /hpf Urine Bacteria Rare H (None) /hpf Urine Mucus Many H (None) /hpf - Radiology Data Radiology results: report reviewed (Ultrasound shows single IUP at 17 weeks.) Disposition Clinical Impression: Dehydration, Vomiting Disposition: HOME SELF-CARE Condition: Stable Instructions (If sedation given, give patient instructions): Acute Nausea and Vomiting (ED) Additional Instructions: Please follow-up to primary care physician and Dr. Sargent in the next couple days for recheck. Return for increased vomiting, not tolerating fluids, pain, bleeding, worsening or changing symptoms or other concerns. Is patient prescribed a controlled substance at d/c from ED?: No Referrals: Beverly Sargent DO [Doctor of Osteopathic Medicine] - 1-2 days Armani Joy DO [STAFF PHYSICIAN] - 1-2 days Time of Disposition: 17:50
[2022-02-18 16:38] LABS: Basophils % (A) 0 %; Eosinophils % (A) 0 %; HCT 41.2 % (34.0-46.0); HGB 14.2 gm/dL (11.4-16.0); Lymphocytes # (A) 0.4 k/uL (1.0-4.8); Lymphocytes % (A) 5 %; MCH 29.7 pg (25.0-35.0); MCHC 34.4 g/dL (31.0-37.0); MCV 86.4 fL (80.0-100.0); Mean Platelet Volume 7.4; Monocytes # (A) 0.6 k/uL (0-1.0); Monocytes % (A) 8 %; Neutrophils # (A) 6.1 k/uL (1.3-7.7); Neutrophils % (A) 85 %; Platelet Count 206 k/uL (150-450); RBC 4.77 m/uL (3.80-5.40); RDW 13.1 % (11.5-15.5); WBC 7.1 k/uL (3.8-10.6)
--- NOTE | 2022-02-18 16:52 | US ---
EXAMINATION TYPE: US OB >= 14 wk fetus DATE OF EXAM: 02/18/2022 COMPARISON: Ultrasound 01/19/2022 CLINICAL HISTORY: cramping EC patient. TECHNIQUE: Transabdominal (TA) GESTATIONAL AGE / DATING Physician Established: (16 weeks/4 days) EDC: 08/01/2022 Dates by LMP: (16 weeks/4 days) EDC: 08/01/2022 Dates by Current Scan: (17 weeks/0 days) EDC: 07/29/2022 Beta HCG (if available): Not available at this time SURVEY IUP: Single PLACENTA: Anterior fundal PREVIA: No Previa VLAD: 10.5 cm Normal CERVICAL LENGTH (transabdominal: norm > 3.0cm): 3.4 cm BIOMETRY PRESENTATION: Vertex BPD: 3.7 cm 17 weeks / 3 days HC: 13.4 cm 17 weeks / 0 days AC: 10.3 cm 16 weeks / 2 days FL: 2.3 cm 16 weeks / 6 days ESTIMATED WEIGHT IN GRAMS: 161 grams ESTIMATED WEIGHT IN LBS/OZ: 0 lbs. 6 oz. WEIGHT PERCENTAGE BASED ON ESTABLISHED DATES: 42% HC/AC: 1.3 Normal FL/AC: 22% HEART RATE: 158 bpm RHYTHM: Normal IMPRESSION: Single live intrauterine with calculated ultrasound age of 17 weeks 0 days. Measurements as described above.
[2022-02-18 17:09] LABS: ALT 11 U/L (4-34); AST 23 U/L (14-36); African American GFR (CKD) >90 (>60 ml/min/1.73 sqM); Albumin 4.4 g/dL (3.5-5.0); Alkaline Phosphatase 73 U/L (38-126); Amylase 81 U/L (30-110); Anion Gap 10 mmol/L; Blood Urea Nitrogen 10 mg/dL (7-17); Calcium 9.3 mg/dL (8.4-10.2); Carbon Dioxide 22 mmol/L (22-30); Chloride 101 mmol/L (98-107); Glucose 81 mg/dL (74-99); Lipase 68 U/L (23-300); Non-African American GFR(CKD) >90 (>60 ml/min/1.73 sqM); Sodium 133 mmol/L (137-145); Total Bilirubin 0.5 mg/dL (0.2-1.3); Total Protein 7.4 g/dL (6.3-8.2)
[2022-02-18 17:15] LABS: Appearance,Urine Cloudy (Clear); Bacteria,Urine Rare /hpf; Bilirubin,Urine Negative (Negative); Blood,Urine Negative (Negative); Color,Urine Yellow; Glucose,Urine (UA) Negative (Negative); Ketones,Urine 4+ (Negative); Leukocyte Esterase,Urine Trace (Negative); Mucus,Urine Many /hpf; Nitrite,Urine Negative (Negative); Protein,Urine 1+ (Negative); RBC,Urine 4 /hpf (0-5); Specific Gravity,Urine 1.035 (1.001-1.035); Squamous Epithelial Cell,Urine 8 /hpf (0-4); WBC,Urine 2 /hpf (0-5)
[2022-02-18 17:53] LABS: HCG,Quantitative Serum 33389.1 mIU/mL
== END 2022-02-18 17:55 | disposition home or self-care (01) ==
LOC: EC 11:35
DX: O99.282 Endocrine, nutritional and metabolic diseases complicating pregnancy, second trimester (principal); O21.9 Vomiting of pregnancy, unspecified; E86.0 Dehydration; O99.512 Diseases of the respiratory system complicating pregnancy, second trimester; J45.909 Unspecified asthma, uncomplicated; Z3A.17 17 weeks gestation of pregnancy; Z88.1 Allergy status to other antibiotic agents
CPT/HCPCS: 36415; 80053; 82150; 83690; 85025; 81001; 84702; 76805; 99284; 96374; 96375; J2405

== ENCOUNTER 2022-07-14 17:08 | Outpatient (CLI) | payer OTHER ==
[2022-07-14 18:47] VITALS: BP 128/73; PULSE 132; RESP 16; TEMP 96.8
--- NOTE | 2022-07-15 09:38 | P.MSEPDOC ---
Presenting Problems - Arrival Data Date of Arrival on Unit: 07/14/22 Time of Arrival on Unit: 17:08 Mode of Transport: Ambulatory - Complaint OB-Reason for Admission/Chief Complaint: Possible Onset of Labor, Pain Comment: patient admits to triage for contractions and decreased movement Medical History - Information : 4 Para: 3 - Gestational Age Gestational Age by PAWEL (wks/days): 37 Weeks and 3 Days - History Comment: shailesh use Review of Systems - Review of Systems Constitutional: No problems Breast: No problems ENT: No problems Cardiovascular: No problems Respiratory: No problems Gastrointestinal: No problems Genitourinary: No problems Musculoskeletal: No problems Neurological: No problems Skin: No problems Vital Signs - Temperature Temperature: 96.8 F Temperature Source: Temporal Artery Scan - Pulse Pulse Oximetery Pulse Rate: 132 Pulse Assessment Method: Pulse Oximetry - Respirations Respiratory Rate: 16 Oxygen Delivery Method: Room Air O2 Sat by Pulse Oximetry: 99 - Blood Pressure Right Arm Blood Pressure: 128/73 Blood Pressure Mean: 91 Blood Pressure Source: Automatic Cuff Medical Screen Scoring - Cervical Exam Dilation (cm): 3 Effacement (%): 60 Station: -2 Membranes: Intact - Assessment - Baby A Baseline FHR: 158 Heart Rate - NICHD Category: Category I (Normal) Physician Notification - Physician Notified Physician Notified Date: 07/14/22 Physician Notified Time: 17:39 Physician: Anca Saenz Maternal Triage Index - Maternal Triage Index Presenting for scheduled procedure w/no complaint: No - Stat/Priority 1 Stat Priority 1: No - Urgent/Priority 2 Urgent Priority 2: No - Prompt/Priority 3 Prompt Priority 3: No - Non-Urgent/Priority 4 Non-Urgent Priority 4: Yes Criteria Met for Priority 4: Patient 37 3/7 presents to triage with contractions. Disposition - Disposition OB Disposition: Discharge to home Discharge Date: 07/14/22 Discharge Time: 18:20 I agree with the RN Medical Screening Exam: Yes Case reviewed; plan agreed upon as documented in EMR&OBIX.: Yes Diagnosis: FALSE LABOR AT OR AFTER 37 COMPLETED WEEKS OF GESTATION
== END 2022-07-14 18:20 ==
LOC: FBPOP 17:08
PROVIDERS: ATTEND Obstetrics & Gynecology
DX: O47.1 False labor at or after 37 completed weeks of gestation (principal); Z3A.37 37 weeks gestation of pregnancy; Z88.1 Allergy status to other antibiotic agents
CPT/HCPCS: 59025; G0463; 99213

== ENCOUNTER 2022-07-21 01:52 | Inpatient (IN) | payer OTHER ==
[2022-07-21] MEDS ORDERED: LIDOCAINE 0.5% (PF) 5 MG/ML (50 ML SDV) SQ PRN (02:16)
[2022-07-21] MEDS ORDERED: TERBUTALINE 1 MG/ML VIAL SQ PRN (02:16)
[2022-07-21] MEDS ORDERED: OXYTOCIN 30 UNITS/500 ML NS 30 UNIT in SALINE 1 500ML.BAG IV SCH ×2 (02:30→08:45)
[2022-07-21] MEDS: LACTATED RINGERS 1,000 ML IV SCH ×2 (02:30→10:33)
[2022-07-21 03:23] LABS: Basophils % (A) 0 %; Eosinophils # (A) 0.1 k/uL (0-0.7); Eosinophils % (A) 1 %; HCT 34.1 % (34.0-46.0); HGB 11.1 gm/dL (11.4-16.0); Hypochromasia Slight; Lymphocytes # (A) 1.7 k/uL (1.0-4.8); Lymphocytes % (A) 22 %; MCH 25.6 pg (25.0-35.0); MCHC 32.5 g/dL (31.0-37.0); MCV 78.7 fL (80.0-100.0); Mean Platelet Volume 9.2; Monocytes # (A) 0.5 k/uL (0-1.0); Monocytes % (A) 6 %; Neutrophils # (A) 5.1 k/uL (1.3-7.7); Neutrophils % (A) 66 %; Platelet Count 204 k/uL (150-450); RBC 4.33 m/uL (3.80-5.40); RDW 14.5 % (11.5-15.5); WBC 7.7 k/uL (3.8-10.6)
[2022-07-21 03:56] LABS: Amphetamine Screen,Urine Not Detected (NotDetected); Barbiturate Screen,Urine Not Detected (NotDetected); Benzodiazepines Screen,Urine Not Detected (NotDetected); Cocaine Screen,Urine Not Detected (NotDetected); Methadone Screen, Urine Not Detected (NotDetected); Opiate Screen,Urine Not Detected (NotDetected); Oxycodone Screen, Urine Not Detected (NotDetected); Phencyclidine Screen,Urine Not Detected (NotDetected); Tricyclic Antidepressant,Urine Not Detected (NotDetected); Urn Cannabinoid Scrn Detected (NotDetected)
--- NOTE | 2022-07-21 05:36 | P.HPOB ---
History of Present Illness H&P Date: 07/21/22 Chief Complaint: SROM 26 year old presents at 38 weeks 3 days complaining of leaking fluid since 2am. Her cervix is 4/60/-2 and she is angle irregularly. heart tones 140 with moderate variability and reactive. Review of Systems All systems: negative Constitutional: Denies chills, Denies fever Eyes: denies blurred vision, denies pain Ears, nose, mouth and throat: Denies headache, Denies sore throat Cardiovascular: Denies chest pain, Denies shortness of breath Respiratory: Denies cough Gastrointestinal: Denies abdominal pain, Denies diarrhea, Denies nausea, Denies vomiting Genitourinary: Denies dysuria, Denies hematuria Musculoskeletal: Denies myalgias Integumentary: Denies pruritus, Denies rash Neurological: Denies numbness, Denies weakness Psychiatric: Denies anxiety, Denies depression Endocrine: Denies fatigue, Denies weight change Past Medical History Past Medical History: Asthma Additional Past Medical History / Comment(s): OB history: She has had 1 SAB and 2 vaginal deliveries. This is her fourth . She has had care with me since first trimester. O+, abs neg, Rub Imm, RPR NR, Hep B neg, HIV NR, GBS neg. History of Any Multi-Drug Resistant Organisms: None Reported Past Surgical History: No Surgical Hx Reported Past Anesthesia/Blood Transfusion Reactions: No Reported Reaction Smoking Status: Never smoker Past Alcohol Use History: None Reported Past Drug Use History: Marijuana Additional Drug Use History / Comment(s): "Medical Marijuana" - Past Family History Father Additional Family Medical History / Comment(s): type 2 Mother Family Medical History: Cancer Additional Family Medical History / Comment(s): thyroid cancer Medications and Allergies Home Medications Medication Instructions Recorded Confirmed Type No Known Home Medications 07/21/22 07/21/22 History Allergies Allergy/AdvReac Type Severity Reaction Status Date / Time No Known Allergies Allergy Verified 07/21/22 02:02 Exam Osteopathic Statement: *. No significant issues noted on an osteopathic structural exam other than those noted in the History and Physical/Consult. Vital Signs Temp Pulse Resp BP Pulse Ox 07/21/22 02:01 97.7 F 115 H 18 138/74 98 Intake and Output 07/20/22 07/20/22 07/21/22 14:59 22:59 06:59 Other: Weight 80.286 kg Heart: Regular rate and rhythm Lungs: Clear to auscultation bilaterally Abdomen: Soft, nontender Extremities: Negative Homans sign Results Result Diagrams: 07/21/22 02:40 Abnormal Lab Results - Last 24 Hours (Table) 07/21/22 07/21/22 Range/Units 01:58 02:40 Hgb 11.1 L (11.4-16.0) gm/dL MCV 78.7 L (80.0-100.0) fL U Marijuana (THC) Screen Detected H (NotDetected) Assessment and Plan (1) Spontaneous rupture of membranes Current Visit: Yes Status: Acute Code(s): [id number] - SNOMED Code(s): 150783787 (2) Normal labor Current Visit: No Status: Resolved Code(s): O80 - ENCOUNTER FOR FULL-TERM UNCOMPLICATED DELIVERY; Z37.9 - OUTCOME OF DELIVERY, UNSPECIFIED SNOMED Code(s): 21455846 Plan: 1. admit to [facility] 2. expectant management 3. anticipate normal vaginal delivery
[2022-07-21] MEDS ORDERED: fentaNYL (PF) 50 MCG/ML 5 ML AMP ONE (05:37)
[2022-07-21] MEDS ORDERED: ROPIVACAINE 5 MG/ML 20 ML AMPULE ONE (05:37)
[2022-07-21] MEDS ORDERED: SODIUM CHLORIDE 0.9% 100 ML BAG ONE (05:37)
[2022-07-21] MEDS ORDERED: ZOLPIDEM 5 MG TAB PO PRN (08:44)
[2022-07-21] MEDS ORDERED: diphenhydrAMINE 25 MG CAP PO PRN (08:44)
[2022-07-21] MEDS ORDERED: LANOLIN CREAM 5 GM TUBE TOPICAL PRN (08:44)
[2022-07-21] MEDS ORDERED: BENZOCAINE/MENTHOL SPRAY 1 GM/SPRAY AEROSOL TOPICAL PRN (08:44)
[2022-07-21] MEDS ORDERED: diphenhydrAMINE 50 MG CAP PO PRN (08:44)
[2022-07-21] MEDS ORDERED: HYDROCORTISONE 2.5% RECTAL CREAM 30 GM TUBE RECTAL PRN (08:44)
--- NOTE | 2022-07-21 09:09 | P.PROBDLV ---
Vaginal Delivery Note - . Vaginal Delivery Note: 26 year old presents at 38 weeks 3 days complaining of leaking fluid since 2am. Her cervix is 4/60/-2 and she is angle irregularly. heart tones 140 with moderate variability and reactive. She started angle more regularly after she was admitted. Her cervix was completely dilated at 7:12 AM. She pushed, delivered a viable female over intact perineum under epidural anesthesia at 7:19 AM. Head delivered OA, anterior shoulder delivered gentle downward guidance of a posterior shoulder and rest of body. Nose and mouth bulb suctioned, cord clamped and cut, infant placed mother's abdomen. Apgars 9, 9, weight 6 lbs. 3 oz. Placenta had to be delivered manually in 2 pieces with three-vessel cord at 7:26 AM. Vagina, cervix, perineum inspected. No lacerations noted. Estimated blood loss 123 mL. Mother and baby in stable condition.
[2022-07-21] MEDS: IBUPROFEN 600 MG TAB PO PRN ×3 (09:22→23:09)
[2022-07-21] MEDS: SENNOSIDES-DOCUSATE SODIUM 1 EACH TAB PO SCH (20:13)
[2022-07-21] MEDS: ACETAMINOPHEN TAB 325 MG TAB PO PRN (20:13)
[2022-07-21 23:25] VITALS: RESP 16
[2022-07-22] MEDS: ACETAMINOPHEN TAB 325 MG TAB PO PRN ×2 (01:54→07:39)
[2022-07-22] MEDS: IBUPROFEN 600 MG TAB PO PRN (05:02)
[2022-07-22 06:14] LABS: Basophils % (A) 0 %; Eosinophils # (A) 0.1 k/uL (0-0.7); Eosinophils % (A) 2 %; HCT 32.1 % (34.0-46.0); HGB 10.4 gm/dL (11.4-16.0); Hypochromasia Marked; Lymphocytes # (A) 1.9 k/uL (1.0-4.8); Lymphocytes % (A) 23 %; MCH 26.5 pg (25.0-35.0); MCHC 32.5 g/dL (31.0-37.0); MCV 81.7 fL (80.0-100.0); Mean Platelet Volume 9.3; Monocytes # (A) 0.5 k/uL (0-1.0); Monocytes % (A) 6 %; Neutrophils # (A) 5.6 k/uL (1.3-7.7); Neutrophils % (A) 67 %; Platelet Count 181 k/uL (150-450); RBC 3.93 m/uL (3.80-5.40); RDW 14.2 % (11.5-15.5); WBC 8.3 k/uL (3.8-10.6)
[2022-07-22] MEDS: SENNOSIDES-DOCUSATE SODIUM 1 EACH TAB PO SCH (07:40)
[2022-07-22 07:47] VITALS: BP 117/78; PULSE 75; TEMP 97.9
--- NOTE | 2022-07-22 08:46 | P.DS ---
Providers Date of admission: 07/21/22 02:21 Expected date of discharge: 07/22/22 Attending physician: Beverly Sargent Primary care physician: Stated None - Discharge Diagnosis(es) (1) Spontaneous rupture of membranes Current Visit: Yes Status: Resolved (2) Normal labor Current Visit: No Status: Resolved (3) Normal vaginal delivery Current Visit: No Status: Acute Hospital Course: She presented with spontaneous rupture of membranes and labor. Patient underwent a normal vaginal delivery with an epidural. course was uncomplicated. She denies nausea, vomiting, chest pain, shortness of breath or any calf pain. Patient is ready to be discharged home with her baby may have jaundice today. She will go home today as long as the baby is okay but if the baby does need to stay one more night she will also stay one more night. Plan - Discharge Summary New Discharge Prescriptions: New Ibuprofen [Motrin] 600 mg PO Q6HR PRN #30 tab PRN Reason: Mild Pain (Scale 1 To 3) Discharge Medication List Ibuprofen [Motrin] 600 mg PO Q6HR PRN #30 tab 07/22/22 [Rx] Follow up Appointment(s)/Referral(s): Beverly Sargent DO [Doctor of Osteopathic Medicine] - 09/02/22 3:45 pm Discharge Disposition: HOME SELF-CARE
== END 2022-07-22 10:45 | disposition home or self-care (01) | DRG 807 ==
LOC: FBPOP 01:52 → 4FBP 02:21
PROVIDERS: ADMIT Obstetrics & Gynecology; ATTEND Obstetrics & Gynecology
PROC: 10E0XZZ Delivery of Products of Conception, External Approach (ICD-10-PCS; principal; 2022-07-21)
PROC: 4A0HXCZ Measurement of Products of Conception, Cardiac Rate, External Approach (ICD-10-PCS; 2022-07-21)
DX: O42.92 Full-term premature rupture of membranes, unspecified as to length of time between rupture and onset of labor (principal); Z37.0 Single live birth; O99.52 Diseases of the respiratory system complicating childbirth; J45.909 Unspecified asthma, uncomplicated; Z3A.38 38 weeks gestation of pregnancy
CPT/HCPCS: 59025; 80306; 84112; 85025; 86850; 86900; 86901; 99213

== ENCOUNTER → 2022-12-20 | Outpatient (CLI) | payer OTHER ==
--- NOTE | 2022-12-20 21:46 | MR ---
EXAMINATION TYPE: MR brain wo con DATE OF EXAM: 12/20/2022 COMPARISON: NONE HISTORY: Pressure headaches and sensitivity on top of head TECHNIQUE: Multiplanar, multisequence imaging of the brain and brainstem is performed without IV cont rast. FINDINGS: Diffusion weighted images demonstrate no evidence of a recent infarct or other diffusion abnormality. There is no extraaxial fluid collection or significant white matter signal abnormality. The ventricu lar system and cisternal spaces are normal in size and appearance. The brain volume is age appropria te. No suspicious blood product noted on T2 Star weighted images. Midline structures demonstrate normal morphology. The craniocervical junction appears within normal limits. Normal vascular flow voids are present. The visualized sinuses are clear and the globes are i ntact. IMPRESSION: Unremarkable study.
== END | disposition home or self-care (01) ==
LOC: RADMRIMAIN 21:00
PROVIDERS: ATTEND Family Medicine
DX: G43.909 Migraine, unspecified, not intractable, without status migrainosus (principal)
CPT/HCPCS: 70551

== ENCOUNTER 2024-06-27 20:15 | Emergency (ER) | payer OTHER ==
[2024-06-27 20:18] VITALS: RESP 20
--- NOTE | 2024-06-27 20:45 | ED ---
Lower Extremity Injury HPI - General Chief Complaint: Extremity Injury, Lower Stated Complaint: R foot pain Time Seen by Provider: 06/27/24 20:20 Source: patient, RN notes reviewed Mode of arrival: ambulatory Limitations: no limitations - History of Present Illness Initial Comments: This is a 28-year-old female who presents to the emergency department for a right foot injury. Patient states that she hit her right foot on the fridge yesterday and has since had pain to this area. She is concerned because she broke this part of her foot in the past and is concerned about damaging it again. She has still been able to ambulate. Not taking anything for pain. MD Complaint: foot injury - Related Data Previous Rx's Medication Instructions Recorded HYDROcodone/APAP 7.5-325MG [[place] 1 tab PO Q4H PRN 3 Days #18 tab 10/18/22 7.5-325] Ibuprofen [Motrin] 600 mg PO Q6HR PRN #30 tab 10/18/22 Allergies Allergy/AdvReac Type Severity Reaction Status Date / Time No Known Allergies Allergy Verified 06/27/24 20:18 Review of Systems ROS Statement: Those systems with pertinent positive or pertinent negative responses have been documented in the HPI. ROS Other: All systems not noted in ROS Statement are negative. Past Medical History Past Medical History: No Reported History History of Any Multi-Drug Resistant Organisms: None Reported Past Surgical History: No Surgical Hx Reported Past Anesthesia/Blood Transfusion Reactions: No Reported Reaction Additional Past Anesthesia/Blood Transfusion Reaction / Comment(s): has only had epidurals w/childbirth Past Psychological History: ADD/ADHD, Anxiety Smoking Status: Never smoker Past Alcohol Use History: None Reported Past Drug Use History: Marijuana - Past Family History Father Additional Family Medical History / Comment(s): type 2 Mother Family Medical History: Cancer Additional Family Medical History / Comment(s): thyroid cancer General Exam Limitations: no limitations General appearance: alert, in no apparent distress Head exam: Present: atraumatic, normocephalic, normal inspection Respiratory exam: Present: normal lung sounds bilaterally. Absent: respiratory distress, wheezes, rales, rhonchi, stridor Cardiovascular Exam: Present: regular rate, normal rhythm, normal heart sounds. Absent: systolic murmur, diastolic murmur, rubs, gallop, clicks Extremities exam: Present: other (Tenderness and ecchymosis over the lateral aspect of the right foot. Full range of motion. 2+ DP and PT pulses) Neurological exam: Present: alert, oriented X3, CN II-XII intact Psychiatric exam: Present: normal affect, normal mood Course Vital Signs 06/27/24 06/27/24 20:17 21:32 Temperature 97.4 F L 97.6 F Pulse Rate 116 H 99 Respiratory 20 20 Rate Blood Pressure 119/75 118/71 O2 Sat by Pulse 98 98 Oximetry Medical Decision Making - Medical Decision Making This is a 28 year old female who presents to the emergency department for a right foot injury. Was pt. sent in by a medical professional or institution? @ -No Did you speak to anyone other than the patient for history? @ -No Did you review nursing and triage notes? @ -Yes, and I agree, it is accurate with regards to the patient's symptoms. Were old charts reviewed? @ -No Differential Diagnosis? @ -Differential Musculoskeletal Muscular strain, contusion, ligament sprain, fracture, arthritis, septic arthritis, bursitis, cellulitis, muscle spasm, nerve compression, DVT, arterial occlusion, herpes zoster, electrolyte abnormality, tumor.... This is not meant to be in all inclusive list EKG interpreted by me (3pts min.)? @ -Not obtained X-rays interpreted by me (1pt min.)? @ -X-ray of the right foot obtained. My interpretation identifies no acute fractures. CT interpreted by me (1pt min.)? @ -Not obtained U/S interpreted by me (1pt. min.)? @ -Not obtained What testing was considered but not performed? (CT, X-rays, U/S, labs)? Why? @ -None What meds were considered but not given? Why? @ -None Did you discuss the management of the patient with other professionals? @ -No Did you reconcile home meds? @ -No Was smoking cessation discussed for >3mins.? @ -No Was critical care preformed (if so, how long)? @ -No Were there social determinants of health that impacted care today? How? (Homelessness, low income, unemployed, alcoholism, drug addiction, trans portation, low edu. Level, literacy, decrease access to med. care, long term, rehab)? @ -No Was there de-escalation of care discussed even if they declined? (Discuss DNR or withdrawal of care, Hospice)? @ -No What co-morbidities impacted this encounter? (DM, HTN, Smoking, COPD, CAD, Cancer, CVA, Hep., AIDS, mental health diagnosis, sleep apnea, morbid obesity)? @ -None Was patient admitted / discharged? @ -Discharged. X-ray of the right foot obtained revealing no acute process. Patient declined pain medication in the emergency department. Advised ibuprofen and Tylenol as needed for pain relief as well as ice and elevation. Patient discharged home in stable condition. Case discussed with ED attending Dr. Mathur. Return precautions reviewed in depth, the patient is instructed to return to the emergency department with any new, worsening, or concerning symptoms. Patient verbalized understanding. Undiagnosed new problem with uncertain prognosis? @ -None Drug Therapy requiring intensive monitoring for toxicity (Heparin, Nitro, Insulin, Cardizem)? @ -None Were any procedures done? @ -None Diagnosis/symptom? @ -Right foot sprain/contusion Acute, or Chronic, or Acute on Chronic? @ -Acute Uncomplicated (without systemic symptoms) or Complicated (systemic symptoms)? @ -Uncomplicated Side effects of treatment? @ -None Exacerbation, Progression, or Severe Exacerbation] @ -Not applicable Poses a threat to life or bodily function? @ -No - Radiology Data Radiology results: report reviewed, image reviewed Disposition Clinical Impression: Contusion of right foot Disposition: HOME SELF-CARE Instructions (If sedation given, give patient instructions): Foot Contusion (ED), Foot Sprain (ED) Additional Instructions: Return to the emergency department with any new, worsening, or concerning symptoms. Alternate with ibuprofen and Tylenol as needed for pain relief. Apply ice and elevate the leg. Follow up with your primary care provider in 1-2 days. Is patient prescribed a controlled substance at d/c from ED?: No Referrals: Judah Dawn MD [Primary Care Provider] - 1-2 days Time of Disposition: 21:13
--- NOTE | 2024-06-27 21:03 | XR ---
EXAMINATION TYPE: XR foot complete RT DATE OF EXAM: 06/27/2024 8:38 PM COMPARISON: None. CLINICAL INDICATION: Female, 28 years old with history of Injury, TECHNIQUE: XR foot complete RT view(s) obtained. FINDINGS: Joint spaces are preserved. No acute fracture or dislocation evident. Soft tissues are normal. Follow up exams can be performed 7-10 days from acute trauma for continued pain. IMPRESSION: 1. No acute osseous abnormality right foot [facility] Lorraine Castillo, , 06/27/2024 9:01 PM
[2024-06-27 21:34] VITALS: BP 118/71; PULSE 99; TEMP 97.6
== END 2024-06-27 21:33 | disposition home or self-care (01) ==
LOC: EC 20:15
DX: S90.31XA Contusion of right foot, initial encounter (principal); W50.0XXA Accidental hit or strike by another person, initial encounter
CPT/HCPCS: 99283